=== PATIENT | male | born 1945 | race Caucasian/White ===

== ENCOUNTER 2024-11-21 09:32 | Day surgery (SDC) | payer MEDICARE, OTHER, SELFPAY ==
[2024-10-24 13:07] VITALS: BMI 35.9
--- NOTE | 2024-10-24 14:27 | HPS.HSE ---
Family Physician
-
Family Physician: INTERVIEWE UNKNOWN - PT NOT
Chief Complaint
-
Atrial fibrillation.
History of Present Illness
The patient is an 79 year old male presenting today for atrial fibrillation. He was at a routine office visit with Dr. Iain Donaldson on October 16, 2024 when his EKG demonstrated new onset atrial fibrillation. He was noted to be rate
controlled with Metoprolol Succinate. He was previously on this medication for hypertension and coronary artery calcifications noted on his most recent chest CT. Unfortunately, the duration of his arrhythmia is unknown given the patient reports no
symptoms with this diagnosis. He was already on oral anticoagulation with Eliquis given his history of left lower extremity DVT and bilateral pulmonary embolism in 2018. This was increased, however, from 2.5 mg to 5 mg twice a day after his office
visit. The patient would like to proceed with a cardioversion for further arrhythmia management. He denies any current complaints today such as chest pain, shortness of breath at rest, nausea, vomiting, diarrhea, lightheadedness, dizziness, cough,
sore throat, or fever.
Medical History
Past Medical History
Past Medical History: Reports Other
Additional Past Medical History:
1. New onset atrial fibrillation, pharmacological therapy with Metoprolol Succinate and oral anticoagulation with Eliquis.
2. Hypertension.
3. Hyperlipidemia.
4. Coronary artery calcifications on chest CT.
5. Mild aortic regurgitation.
6. Mild mitral regurgitation.
7. Mild tricuspid regurgitation.
8. Left lower extremity DVT and bilateral pulmonary embolism, 2018, provoked by travel and prolonged immobility; on chronic Eliquis.
9. Restrictive lung disease.
10. Chronic dyspnea on exertion.
11. GERD.
12. Questionable diverticulitis history.
13. Asplenia.
14. Hemorrhoids.
15. Degenerative disc disease with radiculopathy.
16. Osteoarthritis, status post left total knee arthroplasty 2016.
17. Diffuse large B cell lymphoma, 2017, status post chemotherapy and radiation.
18. Pancreatic neuroendocrine tumor, status post partial pancreatectomy 2018.
19. BPH.
20. Obesity, BMI 35.9.
21. Remote history of tobacco abuse.
Past Surgical History: Reports Other
Additional Past Surgical History:
1. Left total knee arthroplasty.
2. Partial pancreatectomy.
3. Splenectomy.
4. Incisional hernia repair.
5. Multiple epidural steroid injections.
6. Endoscopy.
Social History
Tobacco: Former Smoker (He is a former remote pipe smoker. )
Alcohol: Occasional
Living: Other (He lives independently in a 2 story home. )
Family History
Family History: Not pertinent
Allergies / Home Medications
Allergy/Medication List:
Home medications:
1. Alpha lipoic acid 600 mg p.o. daily.
2. Apixaban 5 mg p.o. twice a day.
3. Benadryl itch stopping 28.3 grams topical twice a day as needed.
4. Cetirizine 10 mg p.o. daily as needed.
5. Nexium 24 hour 20 mg p.o. daily.
6. Zetia 10 mg p.o. at bedtime.
7. Flonase 2 sprays intranasal twice a day.
8. Irbesartan 150 mg p.o. at bedtime.
9. Metoprolol Succinate 25 mg p.o. every evening.
10. Nerve recovery 1 capsule p.o. daily.
11. Tadalafil 5 mg p.o. at 3 PM.
Allergies: Seasonal. No known drug allergies.
Review of Systems
-
A 12 point ROS was completed and negative except as noted: Yes
Physical Exam
Vital Signs
Blood pressure 124/92. Heart rate 90. Respirations 18. Pulse ox 97% on room air.
Height 5 feet, 8 inches. Weight 107.1 kg. BMI 35.9.
Physical Exam
General: Well Developed, Well Nourished and No Apparent Distress
HEENT: NormoCephalic, Moist mucous membranes and Atraumatic
Respiratory: Clear
Cardiac: Irregular Rhythm
GI: Soft, Non Tender, Non Distended and Other (Obese. )
Musculoskeletal: Normal Gait & Station
Neuro: AO x 3 and Nonfocal/grossly intact
Laboratory Results
-
EKG 10/24/2024: Atrial fibrillation.
Echocardiogram 10/23/2022: Normal left ventricular size and systolic function. Left ventricular ejection fraction is 60-65% Mild aortic regurgitation. Mild tricuspid regurgitation. Mild mitral regurgitation. Compared to prior echo 07/25/2019, there
is no significant change.
Impression/Plan
-
IMPRESSION/PLAN:
1. New onset atrial fibrillation: The patient is in need of a cardioversion with Dr. Iain Donaldson on 11/21/2024. The benefits and risks of the procedure have been explained to the patient. The patient understands these risks and wishes to
proceed. He will remain on uninterrupted oral anticoagulation prior to his upcoming procedure.
== END 2024-11-21 12:37 | disposition home or self-care (01) ==
LOC: CATH 09:32
PROVIDERS: ATTENDING PHYSICIAN Internal Medicine Cardiovascular Disease; FAMILY PHYSICIAN Family Medicine
DX: I48.91 Unspecified atrial fibrillation (principal); I10 Essential (primary) hypertension; E78.5 Hyperlipidemia, unspecified; I25.10 Atherosclerotic heart disease of native coronary artery without angina pectoris; I08.3 Combined rheumatic disorders of mitral, aortic and tricuspid valves; Z79.01 Long term (current) use of anticoagulants; Z86.711 Personal history of pulmonary embolism; Z86.718 Personal history of other venous thrombosis and embolism; R06.09 Other forms of dyspnea; J44.9 Chronic obstructive pulmonary disease, unspecified; K21.9 Gastro-esophageal reflux disease without esophagitis; Q89.01 Asplenia (congenital); Z87.19 Personal history of other diseases of the digestive system; M54.10 Radiculopathy, site unspecified; M19.90 Unspecified osteoarthritis, unspecified site; Z96.652 Presence of left artificial knee joint; C83.3A Diffuse large B-cell lymphoma, in remission; Z92.3 Personal history of irradiation; Z92.21 Personal history of antineoplastic chemotherapy; N40.0 Benign prostatic hyperplasia without lower urinary tract symptoms; E66.9 Obesity, unspecified; Z68.35 Body mass index [BMI] 35.0-35.9, adult; Z87.891 Personal history of nicotine dependence; Z79.899 Other long term (current) drug therapy
CPT/HCPCS: 92960; 93005

== ENCOUNTER 2025-05-20 21:58 | Inpatient (IN) | payer MEDICARE, OTHER, SELFPAY ==
[2025-05-20 15:50] VITALS: BP 133/85
[2025-05-20 16:28] LABS: Hematocrit 40.8 % (39.0-52.0); Hemoglobin 14.3 g/dL (13.0-18.0); Mean Corp Hgb Conc. 35.0 g/dL (33.0-37.0); Mean Corpuscular Volume 89.1 fL (80.0-94.0); Nucleated Red Blood Cells % 0 % (-); Platelet Count 254 10^3/uL (130-400); Red Cell Dist. Width 14.8 % (11.5-14.5)
[2025-05-20 16:34] LABS: ALT (SGPT) 30 U/L (0-50); AST (SGOT) 28 U/L (17-59); Albumin 4.1 g/dl (3.5-5.0); Alkaline Phosphatase 59 U/L (38-126); Blood Urea Nitrogen 16 mg/dl (9-20); Calcium 9.2 mg/dl (8.4-10.2); Carbon Dioxide 24 mmol/L (22-30); Chloride 100 mmol/L (98-107); Glucose 121 mg/dl (70-99); Potassium 4.3 mmol/L (3.5-5.1); Sodium 131 mmol/L (135-145); Total Protein 7.2 g/dl (6.3-8.2); eGFR > 60.00
[2025-05-20 19:12] VITALS: BP 152/86
[2025-05-20] MEDS: NSS 1000 IV (20:08)
[2025-05-20] MEDS: TYLENOL 650 MG PO (20:08)
--- NOTE | 2025-05-20 20:33 | ED.GENMED ---
History of Present Illness
<Acacia Bernard PA-C - Last Filed: 05/22/25 06:07>
General
Chief Complaint: Abdominal Pain
Source: patient
Exam Limitations: none
Time Seen by Provider: 05/20/25 19:05
Nursing documentation reviewed up to this point in time: agreed with
History of Present Illness
History of Present Illness:
80 Y/O M with h/o AF on eliquis,HTN, HLD, PE
previous hernia repair last year
lymphoma 2017
pancreatic lesion that was apparently not cancerous
here with lopwer abd pain, and dec appetite, nauesa
pt says 3 days ago he started with pain and he thougth he was constipated
used miarlax and did have bm but pain got worse
feels dehydrated
not much to eat/drink today
no h/o liver disease
Past History
<Acacia Bernard PA-C - Last Filed: 05/22/25 06:07>
Past History
ED Past Medical History: Other (Arthritis)
ED Past Surgical History: None and Orthopedic
Social History
Tobacco: Non-smoker
Alcohol: Occasional
Drug: None
Personal:
Living: with family
Employment: Employed
Family History
Family History: CAD (In his father)
Review of Systems
<Acacia Bernard PA-C - Last Filed: 05/22/25 06:07>
Review of Systems
Allergies reviewed?: Yes
All Other Systems: Not applicable
Phy Exam
<Acacia Bernard PA-C - Last Filed: 05/22/25 06:07>
Physical Exam
Physical Exam:
GENERAL: Alert , in no apparent distress nontoxic-appearing
EYE: pupils equal and reactive
NECK: Supple
ENT: o/p clr, mildly dehydrated
CARDIAC: Regular rate and rhythm .
LUNGS: Clear breath sounds bilaterally, no acute respiratory distress, no wheezes/rales/rhonchi
ABDOMEN: Soft, moderate to severe right lower quadrant tenderness no r/g, no cvat, normal bowel sounds irregularly irregular, tachycardic
NEUROLOGICAL: Alert and oriented, no focal neuro deficits
SKIN: Warm and dry, skin intact.
MUSCULOSKELETAL: No edema, well perfused.
PSYCH: Normal and appropriate interaction.
Course
<Acacia Bernard PA-C - Last Filed: 05/22/25 06:07>
Orders/Labs/Results
Orders:
Orders
05/20/25 15:52
EKG [Electrocardiogram (*1)] Urgent
Reason for Study: Tachycardia
05/20/25 15:53
EKG- Treatment ONCE
05/20/25 16:09
Complete Blood Count/With Diff Urgent
Comprehensive Metabolic Panel Urgent
05/20/25 19:26
CT Abd/Pel (IV only)-[facility] only Urgent
Comment:
Reason For Exam: RLQ tenderness, fever, vomitnig
0.9% Sodium Chloride 1000 ml [Nss] 1,000 ml IV BOLUS
Acetaminophen [Tylenol] 650 mg PO NOW STA
05/20/25 20:00
Blood Culture Q30M
ARI Source: Blood/Venous
Specimen Description:
Cefepime HCl [Maxipime] 1,000 mg IV NOW STA
MetroNIDAZOLE 500 MG/100 ML [Flagyl 500 mg] 100 ml IV NOW
05/20/25 20:03
Lactic Acid Urgent
05/20/25 20:47
Sterile Water [Sterile Water For Injection] 10 ml .ROUTE .[facility]
05/20/25 20:59
Blood Culture Q30M
ARI Source: Blood/Venous
Specimen Description:
05/20/25 21:32
Admit/Transfer Patient As Directed
Co-Sign Provider:
Level of Care: Inpatient admission
Assign to:: IMU- Intermediate Care
Physician / Group: Baldo
Diagnosis: Perforated appendicitis
Reason for Hospitalization: Perforated appendicitis
Expected length of stay greater than two midnights?: Yes
ELOS- Estimated Length of Stay in days: 3
I certify the patient meets the requirements for IP care: Yes
PRN Pain Medication Management As Directed
May give lesser potent ordered pain med per pt: Yes
preference::
Protocol:: Medication orders for pain may be administered in a
manner that supports deferring to patient preference
when the pt is:
- Requesting an ordered lesser potent pain medication.
Least to most potent pain medications are defined
as: acetaminophen < NSAID < tramadol < opioids
(morphine, oxycodone, hydromorphone).
- Requesting a lesser dose of the same medication IF
ORDERED.
- Requesting a less intrusive route of administration
if both routes are prescribed by the provider (PO <
IV).
05/20/25 21:33
Code Status As Directed
Resuscitation Status: Full Code
05/20/25 21:37
Metoprolol [Lopressor] 25 mg PO NOW STA
05/21/25 00:43
0.9% Sodium Chloride 1000 ml [Nss] 1,000 ml IV 125 mls/hr
Acetaminophen [Tylenol] 650 mg PO Q4HPRN PRN
Ketorolac [Toradol] 10 mg IV Q6HPRN PRN
Morphine Sulfate 2 mg IV Q4HPRN PRN
Ondansetron Injectable [Zofran] 4 mg IV Q6HPRN PRN
05/21/25 00:43
SURGICAL CONSULT Routine
Consulting Provider: Silverio Lopez
Was physician already notified: Yes
Activity As Directed
Activity Level: With Assistance
Pneumatic Compression Sleeves As Directed
Type: Knee high
Vital Signs As Directed
Frequency: Per unit guidelines
DX Deep Vein Thrombosis Video Routine
05/21/25 04:00
Cefepime HCl [Maxipime] 2,000 mg IV Q8H
05/21/25 04:35
Basic Metabolic Panel IN AM
Complete Blood Count/No Diff IN AM
05/21/25 06:00
MetroNIDAZOLE 500 MG/100 ML [Flagyl 500 mg] 100 ml IV Q8H
05/21/25 18:00
Metoprolol Xl [Toprol Xl] 25 mg PO QPM
Abnormal Lab Results
05/20/25
16:09
WBC 26.0 H 10^3/uL
(4.8-10.8)
RBC 4.58 L 10^6/uL
(4.70-6.10)
MCH 31.2 H pg
(27.0-31.0)
RDW 14.8 H %
(11.5-14.5)
Abs Immat Gran (auto) 0.2 H 10^3/uL
(0-0.05)
Absolute Neuts (auto) 20.1 H 10^3/uL
(1.4-6.5)
Absolute Monos (auto) 2.9 H 10^3/uL
(0.1-0.6)
Immature Gran % 0.8 H %
(0-0.5)
Neutrophils % 77.2 H %
(42.2-75.2)
Lymphocytes % 10.8 L %
(20.5-51.1)
Monocytes % 11.0 H %
(1.7-9.3)
Sodium 131 L mmol/L
(135-145)
Glucose 121 H mg/dl
(70-99)
Total Bilirubin 4.5 H mg/dl
(0.2-1.3)
05/20/25 16:09
05/20/25 16:09
Vital Signs
Initial and Last Documented VS:
Initial Vital Signs
Temp Pulse Resp BP Pulse Ox
37.6 C 111 18 133/85 97
05/20/25 15:50 05/20/25 15:50 05/20/25 15:50 05/20/25 15:50 05/20/25 15:50
Last Documented Vital Signs
Temp Pulse Resp BP Pulse Ox
37.6 C 101 12 139/94 94
05/22/25 04:10 05/22/25 04:00 05/22/25 04:00 05/22/25 04:00 05/22/25 04:00
<Cesar Ellsworth, DO - Last Filed: 05/20/25 20:48>
Orders/Labs/Results
Orders:
Orders
05/20/25 15:52
EKG [Electrocardiogram (*1)] Urgent
Reason for Study: Tachycardia
05/20/25 15:53
EKG- Treatment ONCE
05/20/25 16:09
Complete Blood Count/With Diff Urgent
Comprehensive Metabolic Panel Urgent
05/20/25 19:26
CT Abd/Pel (IV only)-[facility] only Urgent
Comment:
Reason For Exam: RLQ tenderness, fever, vomitnig
0.9% Sodium Chloride 1000 ml [Nss] 1,000 ml IV BOLUS
Acetaminophen [Tylenol] 650 mg PO NOW STA
05/20/25 20:00
Blood Culture Q30M
ARI Source: Blood/Venous
Specimen Description:
Cefepime HCl [Maxipime] 1,000 mg IV NOW STA
MetroNIDAZOLE 500 MG/100 ML [Flagyl 500 mg] 100 ml IV NOW
05/20/25 20:03
Lactic Acid Urgent
05/20/25 20:47
Sterile Water [Sterile Water For Injection] 10 ml .ROUTE .[facility]
05/20/25 20:59
Blood Culture Q30M
ARI Source: Blood/Venous
Specimen Description:
05/20/25 21:32
Admit/Transfer Patient As Directed
Co-Sign Provider:
Level of Care: Inpatient admission
Assign to:: IMU- Intermediate Care
Physician / Group: Baldo
Diagnosis: Perforated appendicitis
Reason for Hospitalization: Perforated appendicitis
Expected length of stay greater than two midnights?: Yes
ELOS- Estimated Length of Stay in days: 3
I certify the patient meets the requirements for IP care: Yes
PRN Pain Medication Management As Directed
May give lesser potent ordered pain med per pt: Yes
preference::
Protocol:: Medication orders for pain may be administered in a
manner that supports deferring to patient preference
when the pt is:
- Requesting an ordered lesser potent pain medication.
Least to most potent pain medications are defined
as: acetaminophen < NSAID < tramadol < opioids
(morphine, oxycodone, hydromorphone).
- Requesting a lesser dose of the same medication IF
ORDERED.
- Requesting a less intrusive route of administration
if both routes are prescribed by the provider (PO <
IV).
05/20/25 21:33
Code Status As Directed
Resuscitation Status: Full Code
05/20/25 21:37
Metoprolol [Lopressor] 25 mg PO NOW STA
05/21/25 00:43
0.9% Sodium Chloride 1000 ml [Nss] 1,000 ml IV 125 mls/hr
Acetaminophen [Tylenol] 650 mg PO Q4HPRN PRN
Ketorolac [Toradol] 10 mg IV Q6HPRN PRN
Morphine Sulfate 2 mg IV Q4HPRN PRN
Ondansetron Injectable [Zofran] 4 mg IV Q6HPRN PRN
05/21/25 00:43
SURGICAL CONSULT Routine
Consulting Provider: Silverio Lopez
Was physician already notified: Yes
Activity As Directed
Activity Level: With Assistance
Pneumatic Compression Sleeves As Directed
Type: Knee high
Vital Signs As Directed
Frequency: Per unit guidelines
DX Deep Vein Thrombosis Video Routine
05/21/25 04:00
Cefepime HCl [Maxipime] 2,000 mg IV Q8H
05/21/25 04:35
Basic Metabolic Panel IN AM
Complete Blood Count/No Diff IN AM
05/21/25 06:00
MetroNIDAZOLE 500 MG/100 ML [Flagyl 500 mg] 100 ml IV Q8H
05/21/25 18:00
Metoprolol Xl [Toprol Xl] 25 mg PO QPM
Abnormal Lab Results
05/20/25
16:09
WBC 26.0 H 10^3/uL
(4.8-10.8)
RBC 4.58 L 10^6/uL
(4.70-6.10)
MCH 31.2 H pg
(27.0-31.0)
RDW 14.8 H %
(11.5-14.5)
Abs Immat Gran (auto) 0.2 H 10^3/uL
(0-0.05)
Absolute Neuts (auto) 20.1 H 10^3/uL
(1.4-6.5)
Absolute Monos (auto) 2.9 H 10^3/uL
(0.1-0.6)
Immature Gran % 0.8 H %
(0-0.5)
Neutrophils % 77.2 H %
(42.2-75.2)
Lymphocytes % 10.8 L %
(20.5-51.1)
Monocytes % 11.0 H %
(1.7-9.3)
Sodium 131 L mmol/L
(135-145)
Glucose 121 H mg/dl
(70-99)
Total Bilirubin 4.5 H mg/dl
(0.2-1.3)
05/20/25 16:09
05/20/25 16:09
Vital Signs
Initial and Last Documented VS:
Initial Vital Signs
Temp Pulse Resp BP Pulse Ox
37.6 C 111 18 133/85 97
05/20/25 15:50 05/20/25 15:50 05/20/25 15:50 05/20/25 15:50 05/20/25 15:50
Last Documented Vital Signs
Temp Pulse Resp BP Pulse Ox
37.6 C 101 12 139/94 94
05/22/25 04:10 05/22/25 04:00 05/22/25 04:00 05/22/25 04:00 05/22/25 04:00
<Acacia Bernard PA-C - Last Filed: 05/22/25 06:07>
MDM/Problems Addressed
Differential Diagnosis Includes:
diverticulitis, appendicitis, cholecystisi, ascending cholangitis
MDM/Problems Addressed:
RLQ pain x 3 days, febrile; normotensive, tachycardic AF with RVR improving with fluids/tylenol
wbc 26
perforated appendicitis with severe inflammation; probably large abscess 13 cm vs. seroma or hematoma (he did have previous hernia repair)
took eliquis this AM
admit, iv abx, cultures,
lactic normal
stable bp
surgery aware
<Acacia Bernard PA-C - Last Filed: 05/22/25 06:07>
*Pulse Oximetry
SaO2: 96
<Cesar Ellsworth DO - Last Filed: 05/20/25 20:48>
*Pulse Oximetry
Patient hypoxic: no
*Critical Care Note
Total Time (30-74mins, 75-104mins- exclusive of procedures): 30
ED Attending Note
<Acacia Bernard PA-C - Last Filed: 05/22/25 06:07>
-
Portions of this chart may have been created with voice recognition software.� Occasional wrong word or��sound alike� substitutions may have occurred due to the inherent limitations of voice recognition software.
<Cesar Ellsworth DO - Last Filed: 05/20/25 20:48>
ED Attending Note
Patient seen and examined by attending physician: Yes
I performed the substantive portion of visit, reviewed & personally made and approve the management plan that is documented in note by myself or ISAI.: Yes
ED Attending Note:
Seen with PA examined independently 80-year-old male on Eliquis for A-fib status post pancreas removal of the tail years ago at [facility] for precancerous issue, presents with fever abdominal pain history of takes labs noted CT scan noted formal report
pending will have him hold his Eliquis for now until we know for sure what pathology is present
Discharge Plan
Departure
Patient Disposition: Admit
Date of Disposition: 05/20/25
Time of Disposition: 20:59
Admit to: Telemetry
Presentation/result/management discussed w/ accepting MD/DO: Hospitalist
Condition: Fair
Covid-19: Not Applicable
Discharge Problem:
Acute perforated appendicitis, Sepsis
Interventions
Interventions:
*Risk Screen - Suicide Last Done: 05/20/25 15:50
*General Assessment Last Done: 05/20/25 15:50
*Neglect/Abuse Screening Last Done: 05/20/25 15:50
*ED- Fall Risk Assessment Last Done: 05/20/25 19:53
*ED COVID-19 Vaccine History Last Done: 05/20/25 15:50
*Nursing Disposition Last Done: 05/21/25 00:25
JS-Zebtzp-Obiasvzfnh Assessment Last Done: 05/20/25 19:53
Discharge Date and Time
Discharge Date/Time: 05/21/25 00:25
[2025-05-20 20:51] VITALS: BP 112/63
[2025-05-20 21:00] VITALS: BP 108/64
[2025-05-20] MEDS: MAXIPIME 1000 MG IV (21:02)
[2025-05-20] MEDS: FLAGYL 500 MG 100 IV (21:11)
--- NOTE | 2025-05-20 21:27 | HPS.HSE ---
Family Physician
-
Family Physician: NOT KNOW UNKNOWN - PT DOES
Chief Complaint
-
Abdominal pain
History of Present Illness
This is a 80-year-old with past medical history of atrial fibrillation, hypertension, hyperlipidemia, who is chronically anticoagulated presents to the emergency department with abdominal pain x 2 days.
Patient reports initially pain started as constipation and then soreness in the bilateral lower quadrants that is worse with movement. Today started to have a low-grade temps at home felt chills and worsening pain which brought him to the emergency
department.
In the emergency department he was febrile to 101.7, he was tachycardic to 106 in atrial fibrillation blood pressure was initially 150/80 now down to 100 systolic.
He has a white count of 26, hemoglobin and platelets were stable. Electrolytes BUN and creatinine were stable. Total bilirubin was 4.5.
A CT of the abdomen pelvis showing acute perforated appendicitis, free fluid, likely abscess, severe diverticulosis without diverticulitis. No biliary abnormalities noted.
Medical History
Past Medical History
Past Medical History: Reports Other
Additional Past Medical History:
1. New onset atrial fibrillation, pharmacological therapy with Metoprolol Succinate and oral anticoagulation with Eliquis.
2. Hypertension.
3. Hyperlipidemia.
4. Coronary artery calcifications on chest CT.
5. Mild aortic regurgitation.
6. Mild mitral regurgitation.
7. Mild tricuspid regurgitation.
8. Left lower extremity DVT and bilateral pulmonary embolism, 2018, provoked by travel and prolonged immobility; on chronic Eliquis.
9. Restrictive lung disease.
10. Chronic dyspnea on exertion.
11. GERD.
12. Questionable diverticulitis history.
13. Asplenia.
14. Hemorrhoids.
15. Degenerative disc disease with radiculopathy.
16. Osteoarthritis, status post left total knee arthroplasty 2016.
17. Diffuse large B cell lymphoma, 2017, status post chemotherapy and radiation.
18. Pancreatic neuroendocrine tumor, status post partial pancreatectomy 2018.
19. BPH.
20. Obesity, BMI 35.9.
21. Remote history of tobacco abuse.
Past Surgical History: Reports Other
Additional Past Surgical History:
1. Left total knee arthroplasty.
2. Partial pancreatectomy.
3. Splenectomy.
4. Incisional hernia repair.
5. Multiple epidural steroid injections.
6. Endoscopy.
Social History
Tobacco: Former Smoker (He is a former remote pipe smoker. )
Alcohol: Occasional
Living: Other (He lives independently in a 2 story home. )
Family History
Family History: Not pertinent
Allergies / Home Medications
Allergies reflects when Allergies were last updated in [facility].
Home Medications with original date entered in [facility]
Allergy/Medication List:
Home medications:
1. Alpha lipoic acid 600 mg p.o. daily.
2. Apixaban 5 mg p.o. twice a day.
3. Benadryl itch stopping 28.3 grams topical twice a day as needed.
4. Cetirizine 10 mg p.o. daily as needed.
5. Nexium 24 hour 20 mg p.o. daily.
6. Zetia 10 mg p.o. at bedtime.
7. Flonase 2 sprays intranasal twice a day.
8. Irbesartan 150 mg p.o. at bedtime.
9. Metoprolol Succinate 25 mg p.o. every evening.
10. Nerve recovery 1 capsule p.o. daily.
11. Tadalafil 5 mg p.o. at 3 PM.
Allergies: Seasonal. No known drug allergies.
Review of Systems
-
Constitutional: Reports No Symptoms
EENT: Reports No Symptoms
Respiratory: Reports No Symptoms
Cardiac: Reports No Symptoms
Abdomen/GI: Reports Abdominal Pain
: Reports No Symptoms
Musculoskeletal: Reports No Symptoms
Skin: Reports No Symptoms
Neurological: Reports No Symptoms
Endocrine: Reports No Symptoms
Hematologic/Lymphatic: Reports No Symptoms
Psych: Reports No Symptoms
Physical Exam
Vital Signs
Vital Signs
Temp Pulse Resp BP Pulse Ox
101.7 F H 106 33 152/86 96
05/20/25 20:00 05/20/25 20:00 05/20/25 20:00 05/20/25 19:12 05/20/25 20:35
Physical Exam
General: Well Developed, Well Nourished and No Apparent Distress
HEENT: NormoCephalic, Moist mucous membranes and Atraumatic
Respiratory: Clear
Cardiac: S1/S2 and Regular Rhythm; No Murmur or Rub
GI: Soft, Non Distended, Normal Bowel Sounds and Tender; No Organomegaly
Rectal: Deferred by Provider
Musculoskeletal: No Clubbing, No Cyanosis and No Edema
Skin: No Rash
Neuro: Nonfocal/grossly intact
Laboratory Results
-
05/20/25 16:09
05/20/25 16:09
Laboratory Results
Lactic Acid 1.6 mmol/L (0.7-2.0) 05/20/25 20:03
Total Bilirubin 4.5 mg/dl (0.2-1.3) H 05/20/25 16:09
AST 28 U/L (17-59) 05/20/25 16:09
ALT 30 U/L (0-50) 05/20/25 16:09
Alkaline Phosphatase 59 U/L (38-126) 05/20/25 16:09
Data Reviewed
-
CT Scan: Report Reviewed by me
Medical Tests (Nuc Med, Echo, EKG etc): Image Personally Visualized and interpreted
Lab Data: Labs Reviewed by me
Old Records: Reviewed
Impression/Plan
-
IMPRESSION:
80-year-old with multiple comorbidities including atrial fibrillation on anticoagulation, BPH, GERD, status post prior distal pancreatectomy with splenectomy who presents to the emergency department with abdominal pain and was found to have
perforated appendicitis with abscess formation, last Eliquis dose was in AM.
PLAN:
Perforated appendicitis with sepsis
- Admit to IMU
-Blood culture sent
-Continue IV cefepime plus Flagyl
-N.p.o.
-IV fluids
-Pain control and antiemetic
-Will hold apixaban
-Hold irbesartan
-Hold parameters on metoprolol
-Surgery consulted and aware, plan for OR possibly in the a.m.
DVT prophylaxis�SCDs for now
CODE STATUS�full code
[2025-05-20] MEDS: LOPRESSOR 25 MG PO (21:50)
[2025-05-20 22:00] VITALS: BP 112/78
[2025-05-20 23:00] VITALS: BP 103/65
[2025-05-21] VITALS (12 sets, daily range): BP systolic 103–149; BP diastolic 66–98; BMI 32.1; BMI 32.2
[2025-05-21] MEDS: MORPHINE SULFATE 2 MG IV (00:59)
[2025-05-21] MEDS: NSS 1000 IV ×3 (00:59→22:09)
--- NOTE | 2025-05-21 01:43 | PTCARENOTE ---
Assumed care of Pt from ED RN> Pt AAOX4 able to make needs known. Pt OOBx1 BRP, having loose stool. Pt seen to have hematuria in brief, per Pt this is new. [employer] made aware. Pt continues in Afib with pvc's. Call fiore with in reach.
[2025-05-21] MEDS: MAXIPIME 2000 MG IV ×3 (04:24→22:09)
[2025-05-21] MEDS: STERILE WATER FOR INJECTION 10 ML IV ×3 (04:24→22:09)
[2025-05-21] MEDS: TYLENOL 650 MG PO (04:39)
[2025-05-21] MEDS: TORADOL 10 MG IV ×2 (05:02→18:25)
[2025-05-21] MEDS: FLAGYL 500 MG 100 IV ×3 (05:02→22:09)
[2025-05-21 05:07] LABS: Hematocrit 36.7 % (39.0-52.0); Hemoglobin 12.9 g/dL (13.0-18.0); Mean Corp Hgb Conc. 35.1 g/dL (33.0-37.0); Mean Corpuscular Volume 88.0 fL (80.0-94.0); Platelet Count 262 10^3/uL (130-400); Red Cell Dist. Width 14.6 % (11.5-14.5)
[2025-05-21 05:19] LABS: Blood Urea Nitrogen 16 mg/dl (9-20); Calcium 8.7 mg/dl (8.4-10.2); Carbon Dioxide 20 mmol/L (22-30); Chloride 104 mmol/L (98-107); Estimated Creatinine Clearance 92 ml/min; Glucose 110 mg/dl (70-99); Potassium 3.9 mmol/L (3.5-5.1); Sodium 131 mmol/L (135-145); eGFR > 60.00
--- NOTE | 2025-05-21 05:51 | PTCARENOTE ---
Pt having pain in abd, medication given see mar. Pt inct of urine, tea colored with blood clots. urine sent to lab. Pt NPO.
[2025-05-21 06:56] LABS: Urine Character Slightly Cloudy (Clear)
[2025-05-21 07:20] LABS: Urine Squamous Cell 0-2 /LPF (Few)
[2025-05-21 07:21] LABS: Urine Red Blood Cell 40-50 /HPF (0-2); Urine White Cell 0-2 /HPF (0-5)
--- NOTE | 2025-05-21 07:34 | PTCARENOTE ---
Pt resting in bed. no complaints of pain. SCDs on. call fiore in reach. Nightshift RN completed pre-op hygiene.
--- NOTE | 2025-05-21 09:29 | PTCARENOTE ---
Rec'd pt this AM. Remains NPO per surgery. Pt with loose stools, incontinent episodes. HR elevated when OOB. Denies pain.
--- NOTE | 2025-05-21 09:29 | CON.GS ---
Addendum entered and electronically signed by Chong Mueller MD 05/21/25 14:54:
I saw and examined the patient independently.
The resident's documentation was reviewed and I agree with the note, assessment and plan except where noted below.
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
fairly significant seroma on CT imaging which the patient was unaware of) who presents with a 2-day history of abdominal pain found to have acute perforated appendicitis with a collection in the right lower quadrant with air-fluid levels.
IR consult for percutaneous drainage of right lower quadrant abscess.
Antibiotics.
Continue holding Eliquis, okay for heparin drip if deemed necessary by primary team.
Okay for diet, can advance as tolerated.
DVT prophylaxis.
General surgery will continue to follow.
I spent 70 minutes in total for the care of this patient today including direct patient care and counseling, reviewing labs, imaging, coordination of care, as well as documentation.
Original Note:
Consultation
-
Date/Time Consultation Requested: 05/20/2025
Date/Time Consultation Performed: 05/21/2025
Requesting Provider: Jo Bland
Performing Provider: Chong Wells
Reason for Consultation: Perforated Appendicitis with Abscess formation
Medical History
-
Chief Complaint: 80 y/o M w/ PMH of A. Fib, HTN, Hyperlipidemia, presents w/ abdominal pain
History of Present Illness:
80 y/o M with PMH of A. Fib, HTN, and Hyperlipidemia, who is chronically anticoagulated, presented to the ED 2 days ago due to a couple days of fever, chill, and abdominal pain. Patient initially reports pain that started as constipation and then
soreness in bilateral lower quadrants thats worsens with movement.
Past Medical History
Past Medical History: Arrhythmias (Atrial fibrillation), CAD, Cancer (B- cell lymphoma s/p chemo and radiation 2017), Diverticulitis, HTN, Hypercholesterolemia, Valvular Disease (Mild aortic, mitral and triscuspid regurgitation) and Other (Left
lower extremity DVT, Bilateral PE 2018 d/t immobilization and travel, Asplenia, Hemorrhoids, Osteoarthritis. )
Past Surgical History: Hernia Repair, Orthopedic (left total knee arthroplasty) and Other (partial pancreatectomy 2018, splenectomy)
Social History
Tobacco: Former Smoker (Quit years ago)
Alcohol: Occasional
Drug: None
Personal: Single
Living: Alone
Employment: Retired
Family History
Family History: Reviewed & Not Pertinent
Allergies / Home Medications
Allergy/AdvReac Type Severity Reaction Status Date / Time
Penicillins Allergy Unknown Rash Verified 05/20/25 15:51
clindamycin AdvReac Thrush Verified 05/20/25 15:51
�Medication �Instructions �Recorded �Confirmed �Type
cetirizine 10 mg tablet 10 mg PO DAILY PRN allergies 09/04/12 11/21/24 History
diphenhydramine-zinc acetate 1 28.3 gm TP BID PRN itching 07/27/19 11/21/24 History
%-0.1 % topical cream (Benadryl
Itch Stopping)
esomeprazole magnesium 20 mg 20 mg PO DAILY GERD 07/27/19 11/21/24 History
capsule,delayed release (Nexium
24HR)
irbesartan 150 mg tablet 150 mg PO HS Blood Pressure 07/27/19 11/21/24 History
alpha lipoic acid 600 mg tablet 600 mg PO DAILY Supplement 10/20/24 11/21/24 History
apixaban 5 mg tablet (Eliquis) 5 mg PO BID Blood Clot 10/20/24 11/21/24 History
Prevention/Tx
ezetimibe 10 mg tablet (Zetia) 10 mg PO HS High Cholesterol 10/20/24 11/21/24 History
fluticasone propionate 50 2 spray intranasal BID Congestion 10/20/24 11/21/24 History
mcg/actuation nasal
spray,suspension (Flonase Allergy
Relief)
metoprolol succinate 25 mg 25 mg PO QPM Blood Pressure 10/20/24 11/21/24 History
tablet,extended release 24 hr
tadalafil 5 mg tablet (Cialis) 5 mg PO DAILY@1500 BPH/ED/PHTN 10/20/24 11/21/24 History
Nerve Recovery 1 cap PO DAILY Supplement 10/24/24 11/21/24 History
Review of Systems
-
Unable to obtain full review of systems at this time due to: Acuity (Patient is in pain )
History Source: Patient
All other systems: Negative unless noted
Constitutional: Fever and Chills
EENT: No Symptoms
Respiratory: Trouble Breathing
Cardiac: No Symptoms
Abdomen/GI: Abdominal Pain, Nausea, Vomiting, Diarrhea and Pain
: Incontinence
Musculoskeletal: No Symptoms
Skin: No Symptoms
Neurological: Numbness (Peripheral neuropathy)
Endocrine: No Symptoms
Hematologic/Lymphatic: No Symptoms
A 10 point review of systems was completed, and was negative except as per HPI.
Physical Exam
Vital Signs
Temp Pulse Resp BP Pulse Ox
98.2 F 105 28 103/73 98
05/21/25 07:10 05/21/25 08:00 05/21/25 08:00 05/21/25 08:00 05/21/25 08:33
05/20/25 05/21/25 05/22/25
06:59 06:59 06:59
Actual Weight 107.6 kg
Body Mass Index (BMI) 32.2
Lab Results
05/21/25 04:35
05/21/25 04:35
WBC 25.1 10^3/uL (4.8-10.8) H 05/21/25 04:35
Hgb 12.9 g/dL (13.0-18.0) L 05/21/25 04:35
Hct 36.7 % (39.0-52.0) L 05/21/25 04:35
Plt Count 262 10^3/uL (130-400) 05/21/25 04:35
Abs Immat Gran (auto) 0.2 10^3/uL (0-0.05) H 05/20/25 16:09
Neutrophils % 77.2 % (42.2-75.2) H 05/20/25 16:09
AFVSS
Physical Exam
General: Pain (Patient is visibly distressed)
HEENT: Normocephalic, Anicteric and Atraumatic
Respiratory: Wheezes
Cardiac: S1/S2 and Regular Rhythm
Breast: Deferred by me
GI: Soft, Tender, Distended and Obese
Rectal: Deferred by Provider
Genito-urinary: Clear Urine
Musculoskeletal: No Clubbing, No Cyanosis and No Edema
Skin: Warm and Dry
Neuro: AO x 3
Hematologic/Lymphatic: No Lymphadenopathy
Psych: Agitated
Data Reviewed
-
CT Scan: Discussed with Physician and Discussed with Patient
Ultrasound: Discussed with Physician and Discussed with Patient
Labs: Discussed with Physician
Critical Care Time (in minutes): 30
Total Time Spent with Patient (in minutes): 45
Assessment / Plan
-
Continue to hold on Eliquis
Continue IV fluid/NPO
Continue antibiotics
Consult IR
Recommend percutaneous abscess drainage
--- NOTE | 2025-05-21 11:21 | W.PN.HOSP.TC ---
Today's Communication/Plan
-
IV antibiotics
Interventional radiology consultation for percutaneous abscess drain.
Hold Eliquis
Remains n.p.o. except meds
Assessment / Plan
Assessment / Plan
Impression
Acute perforated appendicitis
Other conditions
Persistent atrial fibrillation.
History of left lower extremity DVT and bilateral PE 2018, provoked by travel and prolonged immobility.
Anticoagulation with Eliquis.
Essential hypertension.
Dyslipidemia.
Valvular disease including mild AR, mild MR, mild TR.
Reactive airway disease.
GERD.
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
Pancreatic neuroendocrine tumor, status post partial pancreatectomy 2018
Asplenia
BPH
Obesity BMI 32
Remote history of tobacco abuse.
Plan:
Acute perforated appendicitis per
Presents with persistent right lower quadrant pain and fever pain and fever.
Hemodynamically stable with no evidence of sepsis
Exam with right lower quadrant tenderness but
WBC 26.
CT scan
1. ACUTE PERFORATED APPENDICITIS surrounded by severe inflammation.
2. Severe reactive wall thickening and submucosal edema in the terminal ileum.
3. Small volume ascites.
4. Moderate reactive lymphadenopathy in the right pelvis.
5. Large 13.1 cm midline anterior abdominal wall fluid collection. Diagnostic possibilities are (1) a seroma, (2) a liquefied hematoma, or (3) an abscess.
6. Severe diverticulosis in the descending and sigmoid colon.
7. Previous distal pancreatectomy and splenectomy.
8. Moderate diffuse hepatic steatosis.
9. Small hiatal hernia.
10. Moderate number of bilateral renal cysts.
11. Severely enlarged prostate gland.
12. Severe multilevel lumbar discogenic degenerative disease.
Seen by surgery.
Plan is for percutaneous abscess drain
Broad-spectrum antibiotics cefepime/Flagyl pending cultures
N.p.o. pending procedure
Hold anticoagulation/Eliquis
IV fluids monitor electrolytes
Cardiovascular:
Persistent atrial fibrillation
Essential hypertension
Continue beta-moraima.
Hold Irbesartan
Hold anticoagulation pending intervention
Mechanical DVT prophylaxis while off Eliquis
Full code
Anticipated Discharge: > 48 hours
Subjective/Interval History
-
Date of Service: May 21, 2025
Objective Data
-
Labs:
Laboratory Results
05/21/25
04:35
WBC 25.1 H
Hgb 12.9 L
Hct 36.7 L
Plt Count 262
Sodium 131 L
Potassium 3.9
Chloride 104
Carbon Dioxide 20 L
BUN 16
Creatinine 0.8
Glucose 110 H
Calcium 8.7
Vital Signs:
Vital Signs
Temp Pulse Resp BP Pulse Ox
98.2 F 105 28 103/73 98
05/21/25 07:10 05/21/25 08:00 05/21/25 08:00 05/21/25 08:00 05/21/25 08:33
I&O
05/20/25 05/21/25 05/22/25
06:59 06:59 06:59
Intake Total 755 / 755
Output Total 300 / 300
Balance 455 / 455
Physical Exam
-
General: Well Developed and No Apparent Distress
HEENT: Normocephalic, Atraumatic and Moist Mucous Membranes
Respiratory: Clear to Auscultation
Cardiac: Regular Rhythm and S1/S2; Negative Murmur, Rub or Gallop
GI: Soft, Nondistended, Normal Bowel Sounds and Other (Right lower quadrant tender); Negative Organomegaly
Rectal: Deferred by Provider
Musculoskeletal: No Clubbing, No Cyanosis and No Edema
Skin: Negative Rash
Neuro: Nonfocal/Grossly Intact
--- NOTE | 2025-05-21 16:58 | CM ---
Patient with Dx Acute perforated appendicitis. Plan percutaneous abscess drain. Room air. Receiving IVF, IV Abx. Clear liquids. Per nurse A/O, ambulatory in room.
Spoke with patient's daughter Michaela;
the patient resides alone at [facility] in a 2 story house with 2 [address], and first floor bedroom/bath.
He was independent in ADLs and ambulation.
The patient was very active; walks, swims, cooks, drives, takes himself to the beach, workout at [email or web address].
He has a oxygen therapy teacher to assist with chores at home.
No DME, prior VN or SNF.
PCP - Elver Maxwell
Pharmacy - [facility], [place]
CM continuing to follow for d/c needs.
Plan home.
[2025-05-21] MEDS: TOPROL XL 25 MG PO (17:17)
--- NOTE | 2025-05-21 17:20 | PTCARENOTE ---
Pt continues with frequent loose stools. Dr. Key and GI surgery MILK DRYING MACHINE OPERATOR, Maria G Jones aware. Pt for abcess drain in IR tomorrow. NPO after midnight. clear liquid diet today.
[2025-05-21] MEDS: ZOFRAN 4 MG IV (21:41)
[2025-05-22] VITALS (21 sets, daily range): BP systolic 83–152; BP diastolic 70–101; BMI 31.8
--- NOTE | 2025-05-22 01:09 | PTCARENOTE ---
Assumed care of Pt from day RN. Pt having pain at times, see mar for caregivers non medical. Pt became NPO at midnight for abd drain placement on 05/22. Call fiore within reach. Bed alarm on. Assessment care and vitals as documented.
[2025-05-22] MEDS: MAXIPIME 2000 MG IV (03:55)
[2025-05-22] MEDS: STERILE WATER FOR INJECTION 10 ML IV (03:56)
[2025-05-22 04:29] LABS: Hematocrit 38.1 % (39.0-52.0); Hemoglobin 13.1 g/dL (13.0-18.0); Mean Corp Hgb Conc. 34.4 g/dL (33.0-37.0); Mean Corpuscular Volume 89.2 fL (80.0-94.0); Platelet Count 287 10^3/uL (130-400); Red Cell Dist. Width 14.9 % (11.5-14.5)
[2025-05-22 04:58] LABS: Blood Urea Nitrogen 19 mg/dl (9-20); Calcium 9.1 mg/dl (8.4-10.2); Carbon Dioxide 14 mmol/L (22-30); Chloride 110 mmol/L (98-107); Estimated Creatinine Clearance 91 ml/min; Glucose 114 mg/dl (70-99); Potassium 4.0 mmol/L (3.5-5.1); Sodium 136 mmol/L (135-145); eGFR > 60.00
--- NOTE | 2025-05-22 05:33 | W.PN.UPDATE ---
Update Note
Progress Note Update
Critical value AM labs: CO2 14, ordered Bicarb Gtt 150 meq @ 125 mls/hr. Discontinued NSS fluids. Repeat labs ordered for 6 hours.
[2025-05-22] MEDS: NSS IV (05:38)
[2025-05-22] MEDS: FLAGYL 500 MG 100 IV (05:39)
--- NOTE | 2025-05-22 05:46 | PTCARENOTE ---
Morning labs CO2 14 critical, LINOLEUM FLOOR LAYER made aware. Ordered placed for Bicarb Gtt 150 meq @ 125 mls/hr. Discontinued NSS fluids
[2025-05-22] MEDS: MORPHINE SULFATE 2 MG IV (06:03)
--- NOTE | 2025-05-22 08:43 | W.PN.GS2 ---
Today's Communication / Plan
-
Monitor for signs of sepsis after drain is placed
Continue IV antibiotics
Continue to hold Eliquis
Continue pain medication prn
Assessment / Plan
-
Continue to wait for IR consult for percutaneous abscess drain to be placed in right lower quadrant.
Continue IV antibiotics
Continue to hold Eliquis
DVT Prophylaxis
Advance diet as tolerated
General surgery will continue to follow
Time Spent
Total Time Spent with Patient (in minutes): 15
Subjective Data
-
Date of Service: May 22, 2025
80 y/o M w/ PMH Afib (was on Eliquis with last dose on morning of 05/20/2025), S/P distal pancreatectomy splenectomy for a pancreatic neoplasm as well as ventral hernia repair with mesh (Noted that a large seroma was incidentally found on CT imaging
and was not known by patient), who presented with 2 days of abdominal pain found to be acute perforated appendicitis with air fluid collection in the right lower quadrant. Patient denies any fever, vomiting, but admits to mild nausea. He states that
he has not passed any flatus that he knows of and that he continues to have frequent watery diarrhea. Patient denies pain and states that his pain medication is working well. He states that he's been having what feels like constant indigestion.
Patient is very hopeful to receive his percutaneous drain today.
Objective Data
-
Intake and Output
05/21/25 05/22/25 05/23/25
06:59 06:59 06:59
Intake Total 755 / 755 1838
Output Total 300 / 300
Balance 455 / 455 1838
Intake:
Oral fluids 30 / 30 240 / 240
IV fluids (Total) 625 / 625 1375 / 1375
IV piggybacks 100 / 100 224 / 224
Output:
Urine, Voided 300 / 300
Other:
Number of approximated SMALL 1
amounts of urine
Number of approximated MODERATE 1
amounts of urine
How many times incontinent 1
SMALL amount urine
How many times incontinent 1
MODERATE amount urine
How many times incontinent 1
SATURATED amount urine
Number of unmeasured liquid
stools
Rectum 1
Vital Signs
Temp Pulse Resp BP Pulse Ox
97.9 F 105 13 134/99 96
05/22/25 07:05 05/22/25 06:15 05/22/25 06:15 05/22/25 06:15 05/22/25 06:15
Lab Results
05/22/25 03:56
Calcium 9.1 mg/dl (8.4-10.2) 05/22/25 03:56
Total Bilirubin 4.5 mg/dl (0.2-1.3) H 05/20/25 16:09
AST 28 U/L (17-59) 05/20/25 16:09
ALT 30 U/L (0-50) 05/20/25 16:09
Alkaline Phosphatase 59 U/L (38-126) 05/20/25 16:09
Total Protein 7.2 g/dl (6.3-8.2) 05/20/25 16:09
Albumin 4.1 g/dl (3.5-5.0) 05/20/25 16:09
AFVSS
Labs: WBC is trending high. Could be indicative of ongoing inflammatory process
Physical Exam
-
General: Patient seems anxious and mildy distressed
AAAOx3
Chest: Mild wheezing noted
Abdomen: Despite being on pain meds, patient experiences pain and tenderness when abdominal area is palpated around the right lower quadrant. There is moderate distension around this area as well.
Patient has a galindo catheter: No
Patient has a central line: No
--- NOTE | 2025-05-22 08:45 | PTCARENOTE ---
Patient received from police shift commander. Patient resting comfortably in bed. AAO, VSS. No events noted overnight. Complaints of abdominal and lower back pain at this times, see MAR. Also with some complaints of reflux, will get TUMS ordered.
Currently on Room Air. Continuing glucose management. No fluids via IV. Currently NPO. Patient in for drain in IR today and an ECHO. Call fiore in reach.
[2025-05-22] MEDS: SODIUM BICARBONATE 1150 MEQ IV ×2 (08:49→19:47)
[2025-05-22] MEDS: TORADOL 10 MG IV ×2 (08:52→19:49)
--- NOTE | 2025-05-22 09:13 | PTCARENOTE ---
Patient received from car sales representative. Patient resting comfortably in bed. AAO, VSS. No events noted overnight. Complaints of abdominal and lower back pain at this times, see MAR. Also with some complaints of reflux, will get TUMS ordered.
Currently on Room Air. Sterile water with bicarb ordered. Continuing ABX. Patient in for drain in IR today and an ECHO. Call fiore in reach.
[2025-05-22] MEDS: TUMS CHEWABLE TABLET 200 MG PO (09:41)
--- NOTE | 2025-05-22 09:51 | CON.ID ---
Consultation
-
Date/Time Consultation Requested: May 22, 2025 0950
Date/Time Consultation Performed: May 22, 202550
Requesting Provider: Dr. Ace Key
Performing Provider: Dr. Christine Barrera
Reason for Consultation: Perforated appendicitis
Chief Complaint / Past History
Chief Complaint
Abdominal pain
History of Present Illness
80-year-old male with history of atrial fibrillation, DVT/PE, splenectomy, who presented to the hospital on May 21 due to 2-day history of worsening lower abdominal pain. No diarrhea. Initially he was constipated. No nausea or vomiting. He
developed subjective fevers and chills and therefore came to the ER. In the ER temperature one 1.7, white count 26. CAT scan shows perforated appendicitis, with right lower quadrant air-fluid collection. Also incidental finding of large left
abdominal wall fluid collection 13.1 cm suspected seroma from previous incisional hernia repair per surgery. He is currently on cefepime and metronidazole. Abdominal pain improved today. He is having loose stools now. Remote history of
penicillin reaction with rash when he was a child.
Past History
Additional Past Medical History:
Hypertension
Dyslipidemia
Atrial fibrillation
LLE DVT/PE
Restrictive lung disease
BPH
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
Left total knee replacement
Incisional hernia repair
Allergy History:
Penicillins Allergy (Unknown, Verified 05/20/25 15:51)
Rash (child)
clindamycin Adverse Reaction (Verified 05/20/25 15:51)
Thrush
Medications Reviewed: Yes
Current Antibiotics:
Cefepime day 3
Metronidazole IV day 3
Social History
Tobacco: Former Smoker
Alcohol: Occasional
Drug: None
Family History
Family History: Not Pertinent
Review of Systems
Review of Systems
General: Fever, Chills and Change in Appetite
HEENT: Negative Sinus Problems, Headache or Pharyngitis
Cardiovascular: Negative Chest Pain or Dyspnea
Respiratory: Negative Dyspnea or Cough
Gasteroenterology: Diarrhea; Negative Nausea or Vomiting
Endocrine: Weakness
Neurological: Negative Dizziness
All systems: All other systems were reviewed and were negative
Vital Signs
Temp Pulse Resp BP Pulse Ox
97.9 F 105 13 134/99 96
05/22/25 07:05 05/22/25 06:15 05/22/25 06:15 05/22/25 06:15 05/22/25 06:15
Selected Entries
05/20/25
20:00
Temp 101.7 F H
Physical Exam
Physical Exam
Constitutional: No Acute Distress
Eyes: No Conjunctival Hemorrhage and Sclera Anicteric
Cardiovascular: Regular Rate and S1/S2
Pulmonary: Clear
Gastrointestinal: Soft, Tender (Right lower quadrant), Non Distended and Normal Bowel Sounds
Genito-Urinary: Negative CVA Tenderness
Extremities: Negative Edema
Neurological: AO x 3
Lab / Diagnostic Study Results
05/22/25 03:56
Abs Immat Gran (auto) 0.2 10^3/uL (0-0.05) H 05/20/25 16:09
Absolute Neuts (auto) 20.1 10^3/uL (1.4-6.5) H 05/20/25 16:09
Absolute Lymphs (auto) 2.8 10^3/uL (1.2-3.4) 05/20/25 16:09
Absolute Monos (auto) 2.9 10^3/uL (0.1-0.6) H 05/20/25 16:09
Absolute Basos (auto) 0.1 10^3/uL (0-0.2) 05/20/25 16:09
Immature Gran % 0.8 % (0-0.5) H 05/20/25 16:09
Neutrophils % 77.2 % (42.2-75.2) H 05/20/25 16:09
Lymphocytes % 10.8 % (20.5-51.1) L 05/20/25 16:09
Monocytes % 11.0 % (1.7-9.3) H 05/20/25 16:09
Eosinophils % 0.0 % (0-6) 05/20/25 16:09
Basophils % 0.2 % (0-2) 05/20/25 16:09
Lactic Acid 1.6 mmol/L (0.7-2.0) 05/20/25 20:03
Ur Squamous Epith Cells 0-2 /LPF (Few) 05/21/25 05:11
Microbiology Results
Micro:
05/20/25 20:00 Blood Culture - Preliminary
Blood/Venous Viridans Streptococcus Group
Gram Stain - Preliminary
05/20/25 20:59 Blood Culture - Preliminary
Blood/Venous No Growth in 24 hours- Final report to follow
05/21/25 05:11 Urine Culture - Pending
Urine
05/20/25 CT a/p: ACUTE PERFORATED APPENDICITIS surrounded by severe inflammation. Severe reactive wall thickening and submucosal edema in the terminal ileum.Small volume ascites.Moderate reactive lymphadenopathy in the right pelvis. Large 13.1 cm
midline anterior abdominal wall fluid collection. Diagnostic possibilities are (1) a seroma, (2) a liquefied hematoma, or (3) an abscess.
Assessment / Plan
# Perforated appendicitis with localized abscess
# Viridans group Streptococcus bacteremia from intra-abdominal source
# Sepsis with fever and leukocytosis
# Reported history of penicillin allergy�rash
# History of splenectomy and partial pancreatectomy
- Follow repeat blood cultures pending
-For IR drainage of right lower quadrant abscess, as per colorectal
Check aerobic and anaerobic culture.
- Most individuals outgrow penicillin allergy. Patient agreed agreeable to penicillin challenge.
DC cefepime and metronidazole.
Start Unasyn 3 g IV every 6 hours and monitor closely.
- Trend white count and temperature.
# Conditions HIV CTS SPECIALIST
Hypertension
Dyslipidemia
Atrial fibrillation
LLE DVT/PE
Restrictive lung disease
BPH
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
Left total knee replacement
Incisional hernia repair
Care Review
Plan reviewed with: Physician (Dr. Key)
--- NOTE | 2025-05-22 09:54 | W.PN.HOSP.TC ---
Today's Communication/Plan
-
Repeat blood cultures.
Echocardiogram
Interventional radiology to drain appendiceal abscess.
ID consultation
Hold Eliquis in anticipation of procedure. Will plan to bridge with Lovenox after.
IV fluids changed to alkalinize given worsening metabolic acidosis. Follow BMP
Assessment / Plan
Assessment / Plan
Impression
Acute perforated appendicitis
Strep viridans bacteremia
Normal anion gap metabolic acidosis
Other conditions
Persistent atrial fibrillation.
History of left lower extremity DVT and bilateral PE 2018, provoked by travel and prolonged immobility.
Anticoagulation with Eliquis.
Essential hypertension.
Dyslipidemia.
Valvular disease including mild AR, mild MR, mild TR.
Reactive airway disease.
GERD.
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
Pancreatic neuroendocrine tumor, status post partial pancreatectomy 2018
Asplenia
BPH
Obesity BMI 32
Remote history of tobacco abuse.
Plan:
Acute perforated appendicitis per
Presents with persistent right lower quadrant pain and fever pain and fever.
Hemodynamically stable with no evidence of sepsis
Exam with right lower quadrant tenderness but
WBC 26.
CT scan
1. ACUTE PERFORATED APPENDICITIS surrounded by severe inflammation.
2. Severe reactive wall thickening and submucosal edema in the terminal ileum.
3. Small volume ascites.
4. Moderate reactive lymphadenopathy in the right pelvis.
5. Large 13.1 cm midline anterior abdominal wall fluid collection. Diagnostic possibilities are (1) a seroma, (2) a liquefied hematoma, or (3) an abscess.
6. Severe diverticulosis in the descending and sigmoid colon.
7. Previous distal pancreatectomy and splenectomy.
8. Moderate diffuse hepatic steatosis.
9. Small hiatal hernia.
10. Moderate number of bilateral renal cysts.
11. Severely enlarged prostate gland.
12. Severe multilevel lumbar discogenic degenerative disease.
Blood culture positive for strep viridans
Seen by surgery.
Plan is for percutaneous abscess drain
Broad-spectrum antibiotics cefepime/Flagyl pending cultures
N.p.o. pending procedure
Hold anticoagulation/Eliquis
IV fluids monitor electrolytes
Repeat blood cultures
Echocardiogram
ID consultation
Normal anion gap metabolic acidosis secondary to diarrheal stool.
Suspect also pancreatic insufficiency with prior history of partial pancreatectomy
IV fluids changed alkalinized
Follow BMP
Cardiovascular:
Persistent atrial fibrillation
Essential hypertension
Continue beta-moraima.
Hold Irbesartan
Hold anticoagulation pending intervention
Mechanical DVT prophylaxis while off Eliquis
Full code
Anticipated Discharge: > 48 hours
Subjective/Interval History
-
Date of Service: May 22, 2025
Objective Data
-
Labs:
Laboratory Results
05/22/25 05/22/25
03:56 11:00
WBC 24.7 H
Hgb 13.1
Hct 38.1 L
Plt Count 287
Sodium 136 Pending
Potassium 4.0 Pending
Chloride 110 H Pending
Carbon Dioxide 14 L* Pending
BUN 19 Pending
Creatinine 0.8 Pending
Glucose 114 H Pending
Calcium 9.1 Pending
Vital Signs:
Vital Signs
Temp Pulse Resp BP Pulse Ox
97.9 F 105 13 134/99 96
05/22/25 07:05 05/22/25 06:15 05/22/25 06:15 05/22/25 06:15 05/22/25 06:15
I&O
05/21/25 05/22/25 05/23/25
06:59 06:59 06:59
Intake Total 755 / 755 1838
Output Total 300 / 300
Balance 455 / 455 1838
Physical Exam
-
General: Well Developed and No Apparent Distress
HEENT: Normocephalic, Atraumatic and Moist Mucous Membranes
Respiratory: Clear to Auscultation
Cardiac: Regular Rhythm and S1/S2; Negative Murmur, Rub or Gallop
GI: Soft, Nondistended, Normal Bowel Sounds and Other (Right lower quadrant tender); Negative Organomegaly
Rectal: Deferred by Provider
Musculoskeletal: No Clubbing, No Cyanosis and No Edema
Skin: Negative Rash
Neuro: Nonfocal/Grossly Intact
[2025-05-22 11:47] LABS: Blood Urea Nitrogen 20 mg/dl (9-20); Calcium 8.8 mg/dl (8.4-10.2); Carbon Dioxide 16 mmol/L (22-30); Chloride 108 mmol/L (98-107); Estimated Creatinine Clearance 91 ml/min; Glucose 117 mg/dl (70-99); Potassium 3.7 mmol/L (3.5-5.1); Sodium 135 mmol/L (135-145); eGFR > 60.00
[2025-05-22] MEDS: UNASYN IV ×3 (12:10→23:29)
[2025-05-22] MEDS: PROTONIX IV 40 MG IV (13:36)
[2025-05-22] MEDS: NSS (PRESERVATIVE FREE) 10 ML IV (13:36)
--- NOTE | 2025-05-22 13:48 | PN.CDI ---
CDI
- -
CDI:
Physician Documentation Request
Admit Date: 05/20/25 21:58
Dear Doctor Shahid,
The diagnosis of Sepsis was documented in H&P, but is not consistently noted in subsequent documentation.
05/20 T max 101.7
Presenting heart rate 111
Presenting respiratory rate 18
Laboratory Tests
05/20/25
16:09
WBC 26.0 H
Please clarify the following:
____ - Sepsis was present on admission
____ - Sepsis was ruled out
____ - Other
Use of terms such as suspected, likely, concern for, or probable (associated with a specific diagnosis that is being evaluated, monitored, or treated as if it exists) are acceptable and can be coded in the inpatient setting, when documented at the
time of discharge.
Thank you,
Yessy Block RN, BSN
CDI Specialist
tiger text
Please use your independent medical judgment in providing your response.
--- NOTE | 2025-05-22 13:51 | PN.CDI ---
CDI
- -
CDI:
Physician Documentation Request
Admit Date: 05/20/25 21:58
Dear Doctor Shahid,
Patient admitted with perforated appendicitis.
Sodium results:
Laboratory Tests
05/20/25 05/21/25 05/22/25
16:09 04:35 03:56
Sodium 131 L 131 L 136
Could you please provide a diagnosis that supports the above lab abnormalities and additional evaluation, monitoring:
Hyponatremia
Abnormal lab value clinically insignificant
Other
Use of terms such as suspected, likely, concern for, or probable (associated with a specific diagnosis that is being evaluated, monitored, or treated as if it exists) are acceptable and can be coded in the inpatient setting, when documented at the
time of discharge.
Thank you,
Yessy Block RN, BSN
CDI Specialist
tiger text
Please use your independent medical judgment in providing your response.
--- NOTE | 2025-05-22 18:37 | W.PN.GS2 ---
Today's Communication / Plan
-
-- OK for trial of clears
-- IR drain flush, will need VNA
-- Abx: Unasyn, f/u cultures
Assessment / Plan
-
Patient is a 80 yo M p/w perforated appendicitis with associated abscess formation
IR drain of abscess placed on 05/22
AVSS
Labs notable for persistently elevated WBC, stable Hb, normal platelets, normal electrolytes and renal function
Clinically stable and improved post drain procedure. Okay for trial of clear liquids, discussed risks of ileus formation. Follow-up drain cultures and tailor antibiotics as needed. Will likely be discharge with IR drain in place and outpatient
follow-up.
-- OK for trial of clears
-- IR drain flush, will need VNA
-- Abx: Unasyn, f/u cultures
Subjective Data
-
Date of Service: May 22, 2025
No major complaints. Feels improved following drain placement. No fevers or chills. Denies any nausea or vomiting. Passing blood preschools, no flatus.
Objective Data
-
Intake and Output
05/21/25 05/22/25 05/23/25
06:59 06:59 06:59
Intake Total 755 / 755 1838 100 / 100
Output Total 300 / 300
Balance 455 / 455 1838 100 / 100
Intake:
Oral fluids 30 / 30 240 / 240
IV fluids (Total) 625 / 625 1375 / 1375
IV piggybacks 100 / 100 224 / 224 100 / 100
Output:
Urine, Voided 300 / 300
Other:
Number of approximated SMALL 1
amounts of urine
Number of approximated MODERATE 1
amounts of urine
How many times incontinent 1
SMALL amount urine
How many times incontinent 1
MODERATE amount urine
How many times incontinent 1
SATURATED amount urine
Number of unmeasured liquid
stools
Rectum 1
Vital Signs
Temp Pulse Resp BP Pulse Ox
98 F 83 18 125/84 95
05/22/25 16:55 05/22/25 17:22 05/22/25 17:22 05/22/25 17:22 05/22/25 17:15
Lab Results
05/22/25 03:56
05/22/25 11:09
Calcium 8.8 mg/dl (8.4-10.2) 05/22/25 11:09
Total Bilirubin 4.5 mg/dl (0.2-1.3) H 05/20/25 16:09
AST 28 U/L (17-59) 05/20/25 16:09
ALT 30 U/L (0-50) 05/20/25 16:09
Alkaline Phosphatase 59 U/L (38-126) 05/20/25 16:09
Total Protein 7.2 g/dl (6.3-8.2) 05/20/25 16:09
Albumin 4.1 g/dl (3.5-5.0) 05/20/25 16:09
Physical Exam
-
Gen: NAD
AbdL soft, mild tenderness in RLQ, obese, mild distension, palpable seroma at midline hernia repair, non-peritoneal, IR drain with feculent output
Patient has a galindo catheter: No
Patient has a central line: No
[2025-05-22] MEDS: TOPROL XL 25 MG PO (19:47)
[2025-05-23] VITALS (12 sets, daily range): BP systolic 125–167; BP diastolic 67–93; BMI 31.7
[2025-05-23] MEDS: VISBIOME 2 CAP PO (00:01)
[2025-05-23] MEDS: TORADOL 10 MG IV ×3 (03:34→18:17)
[2025-05-23 03:51] LABS: Hematocrit 36.5 % (39.0-52.0); Hemoglobin 12.9 g/dL (13.0-18.0); Mean Corp Hgb Conc. 35.3 g/dL (33.0-37.0); Mean Corpuscular Volume 87.1 fL (80.0-94.0); Nucleated Red Blood Cells % 0.4 % (-); Platelet Count 313 10^3/uL (130-400); Red Cell Dist. Width 14.7 % (11.5-14.5)
--- NOTE | 2025-05-23 04:12 | PTCARENOTE ---
patient had multiple episodes of diarrhea. Patient stating 'it is every time he drinks anything'. TT PULP PRESS TENDER and new orders placed, see MAR. Assessment and vital signs as documented. Patient resting in bed with call fiore in reach.
[2025-05-23 04:19] LABS: Blood Urea Nitrogen 19 mg/dl (9-20); Calcium 8.9 mg/dl (8.4-10.2); Carbon Dioxide 20 mmol/L (22-30); Chloride 107 mmol/L (98-107); Estimated Creatinine Clearance 104 ml/min; Glucose 140 mg/dl (70-99); Potassium 3.6 mmol/L (3.5-5.1); Sodium 135 mmol/L (135-145); eGFR > 60.00
[2025-05-23] MEDS: UNASYN IV ×3 (06:01→18:17)
--- NOTE | 2025-05-23 08:26 | PTCARENOTE ---
Patient received from senior property accountant. Patient resting comfortably in bed. AAO, VSS. No events noted overnight. Continued complaints of abdominal and lower back pain at this times but improved after drain placement, see MAR. Also with some
complaints of reflux, will get TUMS ordered. Currently on Room Air. D5W with bicarb ordered. Right AMALIA drain with purulent drainage. Continuing ABX. ECHO done this AM. Call fiore in reach.
[2025-05-23] MEDS: VISBIOME 1 CAP PO (08:35)
[2025-05-23] MEDS: NSS (PRESERVATIVE FREE) 10 ML IV (08:35)
[2025-05-23] MEDS: PROTONIX IV 40 MG IV (08:35)
[2025-05-23 09:38] LABS: Magnesium 1.9 mg/dl (1.6-2.3)
--- NOTE | 2025-05-23 10:09 | W.PN.HOSP.TC ---
Today's Communication/Plan
-
Continue IV antibiotics.
Continue AMALIA drain.
Clear liquid diet.
Follow stool cultures.
Follow repeated blood cultures.
Echocardiogram
Telemetry monitoring for recurrent NSVT.
Increase beta-moraima.
Continue alkalinized IV fluids for normal anion gap metabolic acidosis
Assessment / Plan
Assessment / Plan
Impression
Acute perforated appendicitis
Ileitis
Strep viridans bacteremia
Normal anion gap metabolic acidosis secondary to GI losses
Nonsustained VT
Other conditions
Persistent atrial fibrillation.
History of left lower extremity DVT and bilateral PE 2018, provoked by travel and prolonged immobility.
Anticoagulation with Eliquis.
Essential hypertension.
Dyslipidemia.
Valvular disease including mild AR, mild MR, mild TR.
Reactive airway disease.
GERD.
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
Pancreatic neuroendocrine tumor, status post partial pancreatectomy 2018
Asplenia
BPH
Obesity BMI 32
Remote history of tobacco abuse.
Plan:
Acute perforated appendicitis per
Presents with persistent right lower quadrant pain and fever pain and fever.
Hemodynamically stable with no evidence of sepsis
Exam with right lower quadrant tenderness but
WBC 26.
CT scan
1. ACUTE PERFORATED APPENDICITIS surrounded by severe inflammation.
2. Severe reactive wall thickening and submucosal edema in the terminal ileum.
3. Small volume ascites.
4. Moderate reactive lymphadenopathy in the right pelvis.
5. Large 13.1 cm midline anterior abdominal wall fluid collection. Diagnostic possibilities are (1) a seroma, (2) a liquefied hematoma, or (3) an abscess.
6. Severe diverticulosis in the descending and sigmoid colon.
7. Previous distal pancreatectomy and splenectomy.
8. Moderate diffuse hepatic steatosis.
9. Small hiatal hernia.
10. Moderate number of bilateral renal cysts.
11. Severely enlarged prostate gland.
12. Severe multilevel lumbar discogenic degenerative disease.
Blood culture positive for strep viridans
Status post percutaneous abscess drain by interventional radiology on 05/22
Wound cultures pending
Antibiotics changed from cefepime and Flagyl to Unasyn on 05/22
Repeat blood cultures pending
Echocardiogram
Persistent diarrhea likely due to surrounding ileitis. Will check stool culture and stool for C. difficile
Liquid diet as per surgery
Cleared to resume anticoagulation with Eliquis.
Normal anion gap metabolic acidosis secondary to diarrheal stool.
Suspect also pancreatic insufficiency with prior history of partial pancreatectomy
IV fluids changed alkalinized
Follow BMP
Cardiovascular:
Persistent atrial fibrillation
Essential hypertension
Episode of nonsustained VT on telemetry 05/23. Asymptomatic.
Follow-up ECG A-fib with RVR at 107
Echo pending
Check troponin, magnesium level
Continue telemetry monitoring. If persistent, consider cardiology evaluation
Increase Toprol-XL to 25 mg twice daily
Hold Irbesartan to avoid hypotension
Eliquis resumed
Mechanical DVT prophylaxis while off Eliquis
Full code
Anticipated Discharge: > 48 hours
Subjective/Interval History
-
Date of Service: May 23, 2025
Objective Data
-
Labs:
Laboratory Results
05/23/25
03:42
WBC 20.9 H
Hgb 12.9 L
Hct 36.5 L
Plt Count 313
Sodium 135
Potassium 3.6
Chloride 107
Carbon Dioxide 20 L
BUN 19
Creatinine 0.7
Glucose 140 H
Calcium 8.9
Vital Signs:
Vital Signs
Temp Pulse Resp BP Pulse Ox
98.1 F 108 24 125/74 96
05/23/25 03:00 05/23/25 06:00 05/23/25 06:00 05/23/25 06:00 05/23/25 06:00
I&O
05/22/25 05/23/25 05/24/25
06:59 06:59 06:59
Intake Total 1838 100 / 100
Output Total
Balance 1838 90 / 90
Physical Exam
-
General: Well Developed and No Apparent Distress
HEENT: Normocephalic, Atraumatic and Moist Mucous Membranes
Respiratory: Clear to Auscultation
Cardiac: Regular Rhythm and S1/S2; Negative Murmur, Rub or Gallop
GI: Soft, Nontender, Nondistended, Normal Bowel Sounds and Other (Right lower quadrant percutaneous drain with purulent discharge); Negative Organomegaly
Rectal: Deferred by Provider
Musculoskeletal: No Clubbing, No Cyanosis and No Edema
Skin: Negative Rash
Neuro: Nonfocal/Grossly Intact
[2025-05-23 10:18] LABS: Troponin I < 0.012 ng/ml
--- NOTE | 2025-05-23 11:14 | W.PN.GS2 ---
Addendum entered and electronically signed by Aquilino Lebron MD 05/23/25 15:39:
I saw and examined the patient.
The Bench Worker's note was reviewed and I agree with the note.
Comment: Pt on the toilet passing flatus and stool during our encounter. Pain controlled. C/o nausea, worse with PO intake. Drain seropurulent. WBC trending down. Would cont CLD given onging nausea. Monitor drain output.
Original Note:
Documented by User: Vincenzo Anguiano MD, Resident 05/23/25 15:30
Today's Communication / Plan
-
Continue clears diet for another day due to ongoing moderate nausea
Continue monitoring drain site and output
Continue Abx course until infection clears
Continue pain and nausea meds prn
Patient is encouraged to OOB and ambulate
Patient is educated on BRATY diet for when he can eventually tolerate solids.
Trend labs until WBC count continues to drop
Assessment / Plan
-
Patient is a 80 yo M p/w perforated appendicitis with associated abscess formation
IR drain of abscess placed on 05/22
AVSS
Labs notable for slight decrease in WBC count, stable Hb, normal platelets, normal electrolytes, renal function and an high blood glucose level.
Clinically stable and improved post drain procedure. Tolerating trial of clear liquids, Culture specimen is Strep Viridans which can be treated with (Amp/Sulbactam). Will likely be discharge with IR drain in place and outpatient follow-up.
-- Continue clear liquid diet
-- Abx: Unasyn 3 mg Q6h IV
-- Follow labs to observe trend of decrease WBC count
-- Continue pain meds prn
-- Continue nausea meds prn
-- Continue Eliquis for anticoag
Time Spent
Total Time Spent with Patient (in minutes): 20
Subjective Data
-
Date of Service: May 23, 2025
80 y/o M w/ PMH Afib (was on Eliquis with last dose on morning of 05/20/2025), S/P distal pancreatectomy splenectomy for a pancreatic neoplasm as well as ventral hernia repair with mesh (Noted that a large seroma was incidentally found on CT imaging
and was not known by patient), who presented with 2 days of abdominal pain found to be acute perforated appendicitis with air fluid collection in the right lower quadrant. He is grateful to have his percutaneous drain placed. Patient denies any
fever, vomiting, but admits to mild nausea. He states that he has passed minimal flatus and that he continues to have frequent watery diarrhea every 1.5 hours that started getting worse since last night. Patient states that his nurse recommended a
probiotic but it does seem to help, Patient denies pain and states that his pain medication is working well. He states that he has been tolerating his liquid diet. Patient requests any medication that can help ease up his diarrhea.
Objective Data
-
Intake and Output
05/22/25 05/23/25 05/24/25
06:59 06:59 06:59
Intake Total 1838 100 / 100
Output Total
Balance 1838
Intake:
Oral fluids 240 / 240
IV fluids (Total) 1375 / 1375
IV piggybacks 224 / 224 100 / 100
Output:
Drain Output (Total)
Right Lower Abdomen Placed in
IR
Other:
Number of approximated SMALL 1
amounts of urine
Number of approximated MODERATE 1 1
amounts of urine
How many times incontinent 1
SMALL amount urine
How many times incontinent 1
MODERATE amount urine
Number of unmeasured liquid
stools
Rectum 1
Vital Signs
Temp Pulse Resp BP Pulse Ox
98.1 F 108 24 125/74 96
05/23/25 03:00 05/23/25 06:00 05/23/25 06:00 05/23/25 06:00 05/23/25 06:00
Lab Results
05/23/25 03:42
05/23/25 03:42
Calcium 8.9 mg/dl (8.4-10.2) 05/23/25 03:42
Magnesium 1.9 mg/dl (1.6-2.3) 05/23/25 03:42
Total Bilirubin 4.5 mg/dl (0.2-1.3) H 05/20/25 16:09
AST 28 U/L (17-59) 05/20/25 16:09
ALT 30 U/L (0-50) 05/20/25 16:09
Alkaline Phosphatase 59 U/L (38-126) 05/20/25 16:09
Total Protein 7.2 g/dl (6.3-8.2) 05/20/25 16:09
Albumin 4.1 g/dl (3.5-5.0) 05/20/25 16:09
AFVSS
Labs: WBC decreased from 24.7 to 20.9 trending downwards
Percutaneous Drain: Successful CT guided drainage catheter placement into a pelvic abscess, yielding 25 mL of grossly purulent fluid. Specimen identified as Strep Viridans.
Physical Exam
-
General: NAD
AAAOx3
Chest: Mild wheezing
Abdomen: No pain or tenderness when palpating near the drain. There is some distension around the area. The drain is collecting fluid that is cazares in color and consists of some pus. No redness or erythema around the drain site.
Patient has a galindo catheter: No
Patient has a central line: No

Documented by User: Aquilino Lebron MD 05/23/25 15:26
Today's Communication / Plan
-
Cont abx
Cont drain
Trend WBC
check c dif
[2025-05-23] MEDS: SODIUM BICARBONATE 1150 MEQ IV (11:43)
[2025-05-23] MEDS: TOPROL XL 25 MG PO ×2 (11:44→19:42)
--- NOTE | 2025-05-23 13:49 | W.PN.ID1 ---
Date of Service
Date of Service: May 23, 2025
Today's Communication
Continue Unasyn
Assessment / Plan
# Perforated appendicitis with localized abscess
# Viridans group Streptococcus bacteremia from intra-abdominal source
# fever - resolved
# leukocytosis improved
# Reported history of penicillin allergy�rash. Tolerating Unasyn.
# History of splenectomy and partial pancreatectomy
- Repeat blood cultures neg tod ate
-7/8 s/p IR drainage of right lower quadrant abscess
aerobic and anaerobic culture pending
-Continue Unasyn 3 g IV every 6 hours pending cx data.
- Trend white count and temperature.
# Conditions DIRECTOR ELECTRONICS
Hypertension
Dyslipidemia
Atrial fibrillation
LLE DVT/PE
Restrictive lung disease
BPH
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
Left total knee replacement
Incisional hernia repair
Chief Complaint
-: Other (Perforated appendicitis)
Subjective / Review of Systems
Decreased abdominal pain
Vital Signs / Physical Exam
Vital Signs
Vital Signs
Temp Pulse Resp BP Pulse Ox
97.6 F 99 24 132/89 96
05/23/25 11:05 05/23/25 11:44 05/23/25 06:00 05/23/25 11:44 05/23/25 06:00
Physical Exam
Constitutional: No Acute Distress
Cardiovascular: Regular Rate and S1/S2
Pulmonary: Clear
Gastrointestinal: Soft, Tender (Mild right lower quadrant), Non Distended, Normal Bowel Sounds and Other (RLQ AMALIA drain purulent fluid)
Genito-Urinary: Negative CVA Tenderness
Extremities: Negative Edema
Neurological: AO x 3
Objective Data
Lab Data
Lab Results
05/23/25 03:42
05/23/25 03:42
Estimated Creat Clear 104 ml/min 05/23/25 03:42
Lactic Acid 1.6 mmol/L (0.7-2.0) 05/20/25 20:03
Total Bilirubin 4.5 mg/dl (0.2-1.3) H 05/20/25 16:09
AST 28 U/L (17-59) 05/20/25 16:09
ALT 30 U/L (0-50) 05/20/25 16:09
Alkaline Phosphatase 59 U/L (38-126) 05/20/25 16:09
Most recent labs reviewed.
Micro Results:
05/23/25 09:24 C. difficile GDH Antigen & Toxins - Final
Feces/Stool Negative for toxigenic C.difficile
05/22/25 16:50 Wound Culture - Preliminary
Appendix Gram Stain - Preliminary
05/22/25 16:50 Anaerobic Culture - Preliminary
Abscess Culture pending. Anaerobic cultures are examined after 3
days incubation. Additional information to follow.
05/22/25 11:48 Blood Culture - Preliminary
Blood/Venous No Growth in 24 hours- Final report to follow
05/22/25 11:09 Blood Culture - Preliminary
Blood/Venous No Growth in 24 hours- Final report to follow
05/20/25 20:00 Blood Culture - Preliminary
Blood/Venous Viridans Streptococcus Group
Gram Stain - Preliminary
05/23/25 09:24 Salmonella/Shigella Culture - Pending
Feces/Stool Campylobacter Culture - Pending
Shiga Toxin Test - Pending
Stool Leukocytes - Pending
05/20/25 20:59 Blood Culture - Preliminary
Blood/Venous No Growth in 48 hours- Final report to follow
05/21/25 05:11 Urine Culture - Final
Urine NO GROWTH
05/20/25 CT a/p: ACUTE PERFORATED APPENDICITIS surrounded by severe inflammation. Severe reactive wall thickening and submucosal edema in the terminal ileum.Small volume ascites.Moderate reactive lymphadenopathy in the right pelvis. Large 13.1 cm
midline anterior abdominal wall fluid collection. Diagnostic possibilities are (1) a seroma, (2) a liquefied hematoma, or (3) an abscess.
--- NOTE | 2025-05-23 17:24 | CM ---
Patient with Dx Acute perforated appendicitis w associated abscess. Percutaneous abscess drainage catheter placed yesterday. Room air. Receiving IVF w Bicarb, IV Abx. Clear liquids. Per nurse; A/O, ambulatory in room.
CM continuing to follow for d/c needs.
Plan home.
[2025-05-23] MEDS: TUMS CHEWABLE TABLET 200 MG PO (18:20)
[2025-05-23] MEDS: ELIQUIS 5 MG PO (19:42)
[2025-05-24] VITALS (9 sets, daily range): BP systolic 123–145; BP diastolic 71–96; BMI 31.8
[2025-05-24] MEDS: TORADOL 10 MG IV ×3 (00:32→16:44)
[2025-05-24] MEDS: UNASYN IV ×4 (00:32→18:07)
[2025-05-24] MEDS: SODIUM BICARBONATE 1150 MEQ IV (01:32)
[2025-05-24] MEDS: TYLENOL 650 MG PO (04:02)
[2025-05-24] MEDS: TUMS CHEWABLE TABLET 200 MG PO ×2 (04:02→16:34)
--- NOTE | 2025-05-24 04:25 | PTCARENOTE ---
Patient AAOX3. Room air sating at 96%. Afib on monitor. AMALIA on right side with purulent drainage. Patient having frequent loose BMs. DW5 with sodium bicarb running at 100 ml/hr. Patient wearing SCDs overnight. Assessment and vital signs as charted.
call fiore in reach.
[2025-05-24 04:30] LABS: Hematocrit 35.7 % (39.0-52.0); Hemoglobin 12.7 g/dL (13.0-18.0); Mean Corp Hgb Conc. 35.6 g/dL (33.0-37.0); Mean Corpuscular Volume 86.4 fL (80.0-94.0); Nucleated Red Blood Cells % 0.2 % (-); Platelet Count 363 10^3/uL (130-400); Red Cell Dist. Width 14.5 % (11.5-14.5)
[2025-05-24 04:56] LABS: Blood Urea Nitrogen 17 mg/dl (9-20); Calcium 9.1 mg/dl (8.4-10.2); Carbon Dioxide 24 mmol/L (22-30); Chloride 103 mmol/L (98-107); Estimated Creatinine Clearance 104 ml/min; Glucose 135 mg/dl (70-99); Potassium 3.4 mmol/L (3.5-5.1); Sodium 134 mmol/L (135-145); eGFR > 60.00
[2025-05-24] MEDS: KCL 40 MEQ PO (06:15)
[2025-05-24] MEDS: TOPROL XL 25 MG PO ×2 (09:11→21:49)
[2025-05-24] MEDS: PROTONIX IV 40 MG IV (09:12)
[2025-05-24] MEDS: VISBIOME 1 CAP PO (09:12)
[2025-05-24] MEDS: ELIQUIS 5 MG PO ×2 (09:12→21:49)
[2025-05-24] MEDS: NSS (PRESERVATIVE FREE) 10 ML IV (09:12)
--- NOTE | 2025-05-24 09:52 | W.PN.ID1 ---
Date of Service
Date of Service: May 24, 2025
Today's Communication
Continue Unasyn.
Assessment / Plan
# Perforated appendicitis with localized abscess
# Viridans group Streptococcus bacteremia from intra-abdominal source
# fever - resolved
# leukocytosis improved
# Reported history of penicillin allergy�rash. Tolerating Unasyn.
# History of splenectomy and partial pancreatectomy
- Repeat blood cultures neg to date
-7/8 s/p IR drainage of right lower quadrant abscess
aerobic cx: Strep species, E. coli, GNR. Anaerobic culture pending
-Continue Unasyn 3 g IV every 6 hours pending cx data.
- Trend white count
# Conditions MANAGER IMAGE
Hypertension
Dyslipidemia
Atrial fibrillation
LLE DVT/PE
Restrictive lung disease
BPH
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
Left total knee replacement
Incisional hernia repair
Chief Complaint
-: Other (Perforated appendicitis)
Subjective / Review of Systems
No new complaints.
Vital Signs / Physical Exam
Vital Signs
Vital Signs
Temp Pulse Resp BP Pulse Ox
98.3 F 100 20 139/89 96
05/24/25 07:25 05/24/25 09:11 05/24/25 06:00 05/24/25 09:11 05/24/25 06:00
Physical Exam
Constitutional: No Acute Distress
Cardiovascular: Regular Rate and S1/S2
Pulmonary: Clear
Gastrointestinal: Soft, Tender (RLQ), Non Distended and Other (AMALIA drain; thin cloudy fluid)
Genito-Urinary: Negative CVA Tenderness
Extremities: Negative Edema
Neurological: AO x 3
Objective Data
Lab Data
Lab Results
05/24/25 04:09
05/24/25 04:09
Estimated Creat Clear 104 ml/min 05/24/25 04:09
Lactic Acid 1.6 mmol/L (0.7-2.0) 05/20/25 20:03
Total Bilirubin 4.5 mg/dl (0.2-1.3) H 05/20/25 16:09
AST 28 U/L (17-59) 05/20/25 16:09
ALT 30 U/L (0-50) 05/20/25 16:09
Alkaline Phosphatase 59 U/L (38-126) 05/20/25 16:09
Most recent labs reviewed.
Micro Results:
05/22/25 16:50 Wound Culture - Preliminary
Appendix Gram negative bacilli
Escherichia coli
Streptococcus species
Gram Stain - Preliminary
05/23/25 09:24 Salmonella/Shigella Culture - Pending
Feces/Stool Campylobacter Culture - Pending
Shiga Toxin Test - Final
No E. coli Shiga Toxin 1 or 2 detected.
Stool Leukocytes - Final
05/20/25 20:59 Blood Culture - Preliminary
Blood/Venous No Growth in 72 hours- Final report to follow
05/23/25 09:24 C. difficile GDH Antigen & Toxins - Final
Feces/Stool Negative for toxigenic C.difficile
05/22/25 16:50 Anaerobic Culture - Preliminary
Abscess Culture pending. Anaerobic cultures are examined after 3
days incubation. Additional information to follow.
05/22/25 11:48 Blood Culture - Preliminary
Blood/Venous No Growth in 24 hours- Final report to follow
05/22/25 11:09 Blood Culture - Preliminary
Blood/Venous No Growth in 24 hours- Final report to follow
05/20/25 20:00 Blood Culture - Preliminary
Blood/Venous Viridans Streptococcus Group
Gram Stain - Preliminary
05/21/25 05:11 Urine Culture - Final
Urine NO GROWTH
05/20/25 CT a/p: ACUTE PERFORATED APPENDICITIS surrounded by severe inflammation. Severe reactive wall thickening and submucosal edema in the terminal ileum.Small volume ascites.Moderate reactive lymphadenopathy in the right pelvis. Large 13.1 cm
midline anterior abdominal wall fluid collection. Diagnostic possibilities are (1) a seroma, (2) a liquefied hematoma, or (3) an abscess.
--- NOTE | 2025-05-24 10:27 | W.PN.HOSP.TC ---
Addendum entered and electronically signed by Al Murillo MD 05/24/25 14:50:
daily NSS flushes for home for his AMALIA please send Rx to [facility]
Original Note:
Today's Communication/Plan
-
Continue with IV Unasyn
Diet per surgery
Replete potassium
Out of bed
PT
Assessment / Plan
Assessment / Plan
Impression
Acute perforated appendicitis with localized abscess
Ileitis
Strep viridans bacteremia from intra-abdominal source
Normal anion gap metabolic acidosis secondary to GI losses
Nonsustained VT
Hypokalemia
Other conditions
Persistent atrial fibrillation.
History of left lower extremity DVT and bilateral PE 2018, provoked by travel and prolonged immobility.
Anticoagulation with Eliquis.
Essential hypertension.
Dyslipidemia.
Valvular disease including mild AR, mild MR, mild TR.
Reactive airway disease.
GERD.
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
Pancreatic neuroendocrine tumor, status post partial pancreatectomy 2018
Asplenia
BPH
Obesity BMI 32
Remote history of tobacco abuse.
Plan:
Acute perforated appendicitis per
Presents with persistent right lower quadrant pain and fever pain and fever.
Hemodynamically stable with no evidence of sepsis
Exam with right lower quadrant tenderness but
WBC 26.
CT scan
1. ACUTE PERFORATED APPENDICITIS surrounded by severe inflammation.
2. Severe reactive wall thickening and submucosal edema in the terminal ileum.
3. Small volume ascites.
4. Moderate reactive lymphadenopathy in the right pelvis.
5. Large 13.1 cm midline anterior abdominal wall fluid collection. Diagnostic possibilities are (1) a seroma, (2) a liquefied hematoma, or (3) an abscess.
6. Severe diverticulosis in the descending and sigmoid colon.
7. Previous distal pancreatectomy and splenectomy.
8. Moderate diffuse hepatic steatosis.
9. Small hiatal hernia.
10. Moderate number of bilateral renal cysts.
11. Severely enlarged prostate gland.
12. Severe multilevel lumbar discogenic degenerative disease.
Blood culture positive for strep viridans
Status post percutaneous abscess drain by interventional radiology on 05/22
Wound cultures with polymicrobial
Antibiotics changed from cefepime and Flagyl to Unasyn on 05/22
Repeat blood cultures remains negative
Echocardiogram normal ventricular size systolic function without regional wall motion abnormality. Aortic valve sclerosis without stenosis. No vegetation identified.
Persistent diarrhea likely due to surrounding ileitis. Will check stool culture and stool for C. difficile
Liquid diet as per surgery
Leukocytosis improving
Was restarted on Eliquis 05/23/2025
Normal anion gap metabolic acidosis secondary to diarrheal stool.
Suspect also pancreatic insufficiency with prior history of partial pancreatectomy
IV fluids changed alkalinized. Acidosis resolved.
Follow BMP
Cardiovascular:
Persistent atrial fibrillation
Essential hypertension
Episode of nonsustained VT on telemetry 05/23. Asymptomatic.
Follow-up ECG A-fib with RVR at 107
Echo as above
Continue telemetry monitoring. If persistent, consider cardiology evaluation
Increase Toprol-XL to 25 mg twice daily
Hold Irbesartan to avoid hypotension
Eliquis resumed
DVT prophylaxis�Eliquis
Full code
Okay to transfer out of IMU
Anticipated Discharge: > 48 hours
Subjective/Interval History
-
Date of Service: May 24, 2025
states of abd cramps
remains with loose stools
Objective Data
-
Labs:
Laboratory Results
05/24/25
04:09
WBC 13.2 H
Hgb 12.7 L
Hct 35.7 L
Plt Count 363
Sodium 134 L
Potassium 3.4 L
Chloride 103
Carbon Dioxide 24
BUN 17
Creatinine 0.7
Glucose 135 H
Calcium 9.1
Vital Signs:
Vital Signs
Temp Pulse Resp BP Pulse Ox
98.3 F 100 20 139/89 96
05/24/25 07:25 05/24/25 09:11 05/24/25 06:00 05/24/25 09:11 05/24/25 06:00
I&O
05/23/25 05/24/25 05/25/25
06:59 06:59 06:59
Intake Total 100 / 100
Output Total 50 / 50
Balance 90 / 90 -40 / -40
Physical Exam
-
General: Well Developed and No Apparent Distress
HEENT: Normocephalic, Atraumatic and Moist Mucous Membranes
Respiratory: Clear to Auscultation
Cardiac: Regular Rhythm and S1/S2; Negative Murmur, Rub or Gallop
GI: Soft, Nondistended, Normal Bowel Sounds, Tender and Other (Right lower quadrant percutaneous drain with purulent discharge); Negative Organomegaly
Rectal: Deferred by Provider
Musculoskeletal: No Clubbing, No Cyanosis and No Edema
Skin: Negative Rash
Neuro: Awake and Nonfocal/Grossly Intact
Psych: Calm
Data Reviewed
-
Total Time Spent with Patient (in minutes): 55
--- NOTE | 2025-05-24 11:09 | W.PN.GS2 ---
Addendum entered and electronically signed by Bonifacio Mcmillan MD 05/24/25 11:42:
Patient seen and examined in follow-up with residents. Agree with documented progress note with additions noted here.
Improving abdominal pain, multiple loose bowel movements/diarrhea
Slight nausea but patient also states that he has an appetite and desires to eat food. No vomiting.
AFVSS
NAD AAOx3
ABD: Soft, protuberant but not distended. Mild tenderness palpation localized in the right lower quadrant but no rebound, no rigidity, no guarding
IR drain in place with enteric like contents indicating probable communication with site of perforation towards base of appendix/cecum
A/P: 80-year-old male with acute appendicitis complicated by perforation with contained abscess; status post IR drainage
Appears to have adequate source control with current drain
WBC now down to 13
No peritonitis
Cautious dietary advancement to low residue avoiding large portions
Continue to monitor in hospital today
On Unasyn; infectious disease following
Maintain IR drain for foreseeable future and will be discharged with it in place.
Subsequent outpatient surgical follow-up with future imaging, timing to be determined based on clinical course
Will follow
Original Note:
Today's Communication / Plan
-
Patient was educated on how his diet will progress and was recommended to stick to a low residue diet when the time comes to advance diet.
For now, continue patient on liquids due to his indigestion and bloating.
Continue to monitor labs for downward trend of WBC count.
Continue to monitor BM and flatus.
Patient is clinically stable and progressing well.
Continue to monitor drain output.
Assessment / Plan
-
Patient is a 80 yo M p/w perforated appendicitis with associated abscess formation
IR drain of abscess placed on 05/22
AVSS
Labs notable for continued trend of decrease in WBC count, stable Hb, normal platelets, normal electrolytes and renal function.
Clinically stable and improved post drain procedure. Tolerating trial of clear liquids, Culture specimen is Strep Viridans which is being treated with (Amp/Sulbactam). Will likely be discharge with IR drain in place and outpatient follow-up.
-- Continue clear liquid diet for today
-- Continue Abx: Unasyn 3 mg Q6h IV
-- Follow labs to observe trend of decrease WBC count
-- Continue pain meds prn
-- Continue nausea meds prn
-- Continue Eliquis for anticoag
Time Spent
Total Time Spent with Patient (in minutes): 30
Subjective Data
-
Date of Service: May 24, 2025
80 y/o M w/ PMH Afib (was on Eliquis with last dose on morning of 05/20/2025), S/P distal pancreatectomy splenectomy for a pancreatic neoplasm as well as ventral hernia repair with mesh (Noted that a large seroma was incidentally found on CT imaging
and was not known by patient), who presented with 2 days of abdominal pain found to be acute perforated appendicitis with air fluid collection in the right lower quadrant. IR placed a percutaneous drain. Patient denies any fever, vomiting, but
admits to mild nausea. He states that he has passed some flatus and that he continues to have frequent watery diarrhea every 2 hours for the last 2 nights. Patient denies pain, states that his pain medication is working well and rates his pain as
3/10. He states that he has been tolerating his liquid diet, but he is hoping to advance to a solid food diet.
Objective Data
-
Intake and Output
05/23/25 05/24/25 05/25/25
06:59 06:59 06:59
Intake Total 100 / 100
Output Total 50 / 50
Balance 90 / 90 -40 / -40
Intake:
IV piggybacks 100 / 100
Amount instilled into Drain (
Total)
Right Lower Abdomen Placed in
IR
Output:
Drain Output (Total)
Right Lower Abdomen Placed in
IR
Other:
Number of approximated SMALL 1 1 1
amounts of urine
Number of approximated MODERATE 1
amounts of urine
How many times incontinent 1
MODERATE amount urine
Vital Signs
Temp Pulse Resp BP Pulse Ox
98.3 F 100 20 139/89 96
05/24/25 07:25 05/24/25 09:11 05/24/25 06:00 05/24/25 09:11 05/24/25 06:00
Lab Results
05/24/25 04:09
05/24/25 04:09
Calcium 9.1 mg/dl (8.4-10.2) 05/24/25 04:09
Magnesium 1.9 mg/dl (1.6-2.3) 05/23/25 03:42
Total Bilirubin 4.5 mg/dl (0.2-1.3) H 05/20/25 16:09
AST 28 U/L (17-59) 05/20/25 16:09
ALT 30 U/L (0-50) 05/20/25 16:09
Alkaline Phosphatase 59 U/L (38-126) 05/20/25 16:09
Total Protein 7.2 g/dl (6.3-8.2) 05/20/25 16:09
Albumin 4.1 g/dl (3.5-5.0) 05/20/25 16:09
AFVSS
Labs: WBC continues to trend downward (13.2)
Physical Exam
-
General: NAD
AAAOx3
Chest: No labored breathing
Abdomen: Mild distention and minimal pain on palpation of the area around the drain. Drain is still emptying out cazares/brown pus colored fluid.
Patient has a galindo catheter: No
Patient has a central line: No
--- NOTE | 2025-05-24 12:43 | CM ---
Patient seen at bedside
AMALIA drain
discussed VN - would like [facility]
notified [facility] liaison, referral will enter in careport
PLAN: Home with [facility] when stable
--- NOTE | 2025-05-24 14:40 | VNURNOTE ---
Home Health Liaison met with patient, spouse, and daughter at bedside to discuss [facility] nurse/therapy, visits, schedule and homebound status. Patient is agreeable and understands that visits at home will be 2-3 x per week to assess and teach medical
management. Explained that VN will teach drain care and flushing (if ordered upon DC). Spouse and daughter will find a friend to flush drain days VN not visiting; they are not comfortable learning. Patient's [facility] pharmacy does not carry NSS
flushes. This author confirmed that [facility] does. If ordered NSS flushes upon DC, Rx will need to go to [facility]. Hospitalist notified. Patient is aware that [facility] will contact them for start of care in 1-2 days after discharge
from .
[facility] referral completed in Care Port.
[2025-05-24] MEDS: LR 1000 IV (15:33)
--- NOTE | 2025-05-24 15:53 | PTCARENOTE ---
assumed care for pt s/p transfer from IMU AOx3. Denies pain. LCTA RA, irregular HS, afib. abd round obese, pt reports nausea but does not want to take zofran. AMALIA draining green purulent fluid. dressing CDI skin otherwise intact. no edmea, +PP. CB in
reach pt instructed to use. IVF D/T nausea in IMU, unable to tolerate low fat diet prior to transfer.
[2025-05-24] MEDS: COMPAZINE 10 MG IV (17:00)
[2025-05-25] VITALS (7 sets, daily range): BP systolic 124–143; BP diastolic 72–88; PULSE 100; O2SAT 97; BMI 31.9
[2025-05-25] MEDS: UNASYN IV ×4 (00:19→18:30)
[2025-05-25] MEDS: LR 1000 IV (05:04)
[2025-05-25] MEDS: TYLENOL 650 MG PO ×3 (05:04→21:50)
[2025-05-25 08:06] LABS: Hematocrit 33.8 % (39.0-52.0); Hemoglobin 11.8 g/dL (13.0-18.0); Mean Corp Hgb Conc. 34.9 g/dL (33.0-37.0); Mean Corpuscular Volume 87.8 fL (80.0-94.0); Nucleated Red Blood Cells % 0 % (-); Platelet Count 381 10^3/uL (130-400); Red Cell Dist. Width 14.9 % (11.5-14.5)
--- NOTE | 2025-05-25 08:10 | PN.CDI ---
CDI
- -
CDI:
Physician Documentation Request
Admit Date: 05/20/25 21:58
Dear Doctor Chidi,
The diagnosis of Sepsis was documented in H&P, but is not consistently noted in subsequent documentation.
7 T max 101.7
Presenting heart rate 111
Presenting respiratory rate 18
Laboratory Tests
05/20/25
16:09
WBC 26.0 H
Please clarify the following:
____ - Sepsis was present on admission
____ - Sepsis was ruled out
____ - Other
Use of terms such as suspected, likely, concern for, or probable (associated with a specific diagnosis that is being evaluated, monitored, or treated as if it exists) are acceptable and can be coded in the inpatient setting, when documented at the
time of discharge.
Thank you,
Yessy Block RN, BSN
CDI Specialist
tiger text
Please use your independent medical judgment in providing your response.
--- NOTE | 2025-05-25 08:12 | PN.CDI ---
Addendum entered and electronically signed by Amber Mulligan MD 05/26/25 09:59:
Hyponatremia
Hypokalemia, resolved
Original Note:
CDI
- -
CDI:
Physician Documentation Request
Admit Date: 05/20/25 21:58
Dear Doctor Chidi,
Patient admitted with perforated appendicitis.
Sodium results:
Laboratory Tests
05/20/25 05/21/25 05/22/25
16:09 04:35 03:56
Sodium 131 L 131 L 136
Could you please provide a diagnosis that supports the above lab abnormalities and additional evaluation, monitoring:
Hyponatremia
Abnormal lab value clinically insignificant
Other
Use of terms such as suspected, likely, concern for, or probable (associated with a specific diagnosis that is being evaluated, monitored, or treated as if it exists) are acceptable and can be coded in the inpatient setting, when documented at the
time of discharge.
Thank you,
Yessy Block RN, BSN
CDI Specialist
tiger text
Please use your independent medical judgment in providing your response.
[2025-05-25] MEDS: PROTONIX IV 40 MG IV (08:24)
[2025-05-25] MEDS: NSS (PRESERVATIVE FREE) 10 ML IV (08:24)
[2025-05-25] MEDS: TOPROL XL 25 MG PO ×2 (08:24→20:35)
[2025-05-25] MEDS: VISBIOME 1 CAP PO (08:24)
[2025-05-25] MEDS: ELIQUIS 5 MG PO ×2 (08:24→20:35)
[2025-05-25 08:30] LABS: Blood Urea Nitrogen 14 mg/dl (9-20); Calcium 8.2 mg/dl (8.4-10.2); Chloride 102 mmol/L (98-107); Estimated Creatinine Clearance 104 ml/min; Potassium 3.4 mmol/L (3.5-5.1); Sodium 133 mmol/L (135-145); eGFR > 60.00
[2025-05-25 08:39] LABS: Carbon Dioxide 24 mmol/L (22-30); Glucose 96 mg/dl (70-99)
--- NOTE | 2025-05-25 08:46 | W.PN.GS2 ---
Addendum entered and electronically signed by Bonifacio Mcmillan MD 05/25/25 14:42:
Patient seen and examined earlier this a.m. with resident. Agree with documented progress note with additions noted here.
Stable right lower quadrant discomfort/pain.
Tolerating dietary intake
Loose bowels are less frequent now
AFVSS
NAD AAO x 3
ABD: Soft, nondistended, localized tenderness in the right lower quadrant but no rebound or guarding.
IR drain in place to bulb suction with enteric contents
A/P: 80-year-old male presenting with contained perforated acute appendicitis with abscess manage by IR drainage
Has responded well with normalization of white blood cell count and improving pain
Low residue diet
Maintain IR drain
Probable DC over the next 24 hours with subsequent surgical follow-up with Dr. Mueller
ID following for antibiotic recommendations -agree with Augmentin on discharge
Original Note:
Today's Communication / Plan
-
Cautious dietary advancement to low residue diet with small portions
Continue to monitor in hospital today
On Unasyn; infectious disease following
Monitor drain output
Maintain IR drain for foreseeable future and will be discharged with it in place.
Subsequent outpatient surgical follow-up with future imaging, timing to be determined based on clinical course
Assessment / Plan
-
Patient is a 80 yo M p/w perforated appendicitis with associated abscess formation
-- Continue low residue diet advancing slowly with small portions
-- Continue IV Abx: Unasyn
-- Follow labs to observe trend of decrease WBC count
-- Continue to monitor patient to assess whether he's passing enough flatus.
-- Continue Eliquis for anticoagulation
Time Spent
Total Time Spent with Patient (in minutes): 30
Subjective Data
-
Date of Service: May 25, 2025
80 y/o M w/ PMH Afib (was on Eliquis with last dose on morning of 05/20/2025), S/P distal pancreatectomy splenectomy for a pancreatic neoplasm as well as ventral hernia repair with mesh (Noted that a large seroma was incidentally found on CT imaging
and was not known by patient), who presented with 2 days of abdominal pain found to be acute perforated appendicitis with air fluid collection in the right lower quadrant. IR placed a percutaneous drain. Patient denies any n/v/f/pain. He states that
his diarrhea has been improving becoming more semisolid in nature and less frequent. He also states that he has passed some gas. Patient admits to vomiting yesterday when trying to advance his diet to solids, so he went back to clears (ice cream).
This morning he states the he is continuing to try advancing his diet. Patient states he had some low residue solids to eat and has been feeling okay. Patient is inquiring about discharge, but also states that he wants to stay as long as necessary.
Objective Data
-
Intake and Output
05/24/25 05/25/25 05/26/25
06:59 06:59 06:59
Intake Total 130 / 130 240 / 240
Output Total 60 / 60
Balance -40 / -40 70 / 70 240 / 240
Intake:
Oral fluids 120 / 120 240 / 240
Amount instilled into Drain (
Total)
Right Lower Abdomen Placed in
IR
Output:
Drain Output (Total) 60 / 60
Sukumar-Juarez 40 / 40
Right Lower Abdomen Placed in 20 /
IR
Other:
Number of approximated SMALL 1 1
amounts of urine
Number of approximated MODERATE 4
amounts of urine
Number of unmeasured liquid
stools
Rectum 1
Vital Signs
Temp Pulse Resp BP Pulse Ox
98.8 F 98 16 140/77 96
05/25/25 07:50 05/25/25 07:50 05/25/25 07:50 05/25/25 07:50 05/25/25 07:50
Lab Results
05/25/25 07:46
05/25/25 07:46
Calcium 8.2 mg/dl (8.4-10.2) L 05/25/25 07:46
Magnesium 1.9 mg/dl (1.6-2.3) 05/23/25 03:42
Total Bilirubin 4.5 mg/dl (0.2-1.3) H 05/20/25 16:09
AST 28 U/L (17-59) 05/20/25 16:09
ALT 30 U/L (0-50) 05/20/25 16:09
Alkaline Phosphatase 59 U/L (38-126) 05/20/25 16:09
Total Protein 7.2 g/dl (6.3-8.2) 05/20/25 16:09
Albumin 4.1 g/dl (3.5-5.0) 05/20/25 16:09
AFVSS
Labs: WBC Count continuing to trend downward (10.1)
Physical Exam
-
General: NAD
AAAOx3
Chest: No labored breathing
Abdomen: Soft, protuberant, with minimal distension. No pain on palpation of the abdominal area around the drain. No rebound or guarding. Drain still producing pus (cazares/brown color) fluid. No redness, swelling or erythema around drain site.
Patient has a galindo catheter: No
Patient has a central line: No
--- NOTE | 2025-05-25 10:11 | W.PN.HOSP.TC ---
Addendum entered and electronically signed by Al Murillo MD 05/25/25 14:04:
Pts med list per pt�
Eliquis 5mg BID
Cetirizine 10mg QPM
Nexium 20mg daily
Zetia 10mg QHS
Flonase 2 sprays each nostril BID
Irbesartan 150mg QHS
Metoprolol 50mg QPM
Cialis 5mg daily at 3pm
Supplements�
Alpha lipoic acid 1200mg daily
Nerve recovery supplement 1 tab daily
2 over the counter supplements for prostate health that he can�t think of
Benadryl cream as needed
Addendum entered and electronically signed by Al Murillo MD 05/25/25 10:27:
sepsis-poa
Original Note:
Today's Communication/Plan
-
Continue with IV antibiotic
Monitor for diet tolerance
Replete potassium
Pending home med rec
Monitor AMALIA drain output
Assessment / Plan
Assessment / Plan
Impression
Acute perforated appendicitis with localized abscess
Ileitis
Strep viridans bacteremia from intra-abdominal source
Normal anion gap metabolic acidosis secondary to GI losses
Nonsustained VT
Hypokalemia
Mild hyponatremia
Other conditions
Persistent atrial fibrillation.
History of left lower extremity DVT and bilateral PE 2018, provoked by travel and prolonged immobility.
Anticoagulation with Eliquis.
Essential hypertension.
Dyslipidemia.
Valvular disease including mild AR, mild MR, mild TR.
Reactive airway disease.
GERD.
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
Pancreatic neuroendocrine tumor, status post partial pancreatectomy 2018
Asplenia
BPH
Obesity BMI 32
Remote history of tobacco abuse.
Plan:
Acute perforated appendicitis per
Presents with persistent right lower quadrant pain and fever pain and fever.
Hemodynamically stable with no evidence of sepsis
Exam with right lower quadrant tenderness but
WBC 26.
CT scan
1. ACUTE PERFORATED APPENDICITIS surrounded by severe inflammation.
2. Severe reactive wall thickening and submucosal edema in the terminal ileum.
3. Small volume ascites.
4. Moderate reactive lymphadenopathy in the right pelvis.
5. Large 13.1 cm midline anterior abdominal wall fluid collection. Diagnostic possibilities are (1) a seroma, (2) a liquefied hematoma, or (3) an abscess.
6. Severe diverticulosis in the descending and sigmoid colon.
7. Previous distal pancreatectomy and splenectomy.
8. Moderate diffuse hepatic steatosis.
9. Small hiatal hernia.
10. Moderate number of bilateral renal cysts.
11. Severely enlarged prostate gland.
12. Severe multilevel lumbar discogenic degenerative disease.
Blood culture positive for strep viridans
Status post percutaneous abscess drain by interventional radiology on 05/22
Wound cultures with polymicrobial
Antibiotics changed from cefepime and Flagyl to Unasyn on 05/22
Repeat blood cultures remains negative
Echocardiogram normal ventricular size systolic function without regional wall motion abnormality. Aortic valve sclerosis without stenosis. No vegetation identified.
Persistent diarrhea likely due to surrounding ileitis. C. difficile negative
Diet advanced.
Leukocytosis resolved
Nausea and vomiting improved. DC fluids.
Was restarted on Eliquis 05/23/2025
Surgical correspondence noted. Patient to be discharged with AMALIA drain and duration will be determined as outpatient.
Normal anion gap metabolic acidosis secondary to diarrheal stool.
Suspect also pancreatic insufficiency with prior history of partial pancreatectomy
IV fluids changed alkalinized. Acidosis resolved.
Follow BMP
Cardiovascular:
Persistent atrial fibrillation
Essential hypertension
Episode of nonsustained VT on telemetry 05/23. Asymptomatic.
Follow-up ECG A-fib with RVR at 107
Echo as above
Continue telemetry monitoring. If persistent, consider cardiology evaluation
Increase Toprol-XL to 25 mg twice daily
Hold Irbesartan to avoid hypotension
Eliquis resumed
DVT prophylaxis�Eliquis
Full code
Pending home med rec
Anticipated Discharge: 24 - 48 hours
Subjective/Interval History
-
Date of Service: May 25, 2025
No nausea or vomiting this morning
States ate eggs
Objective Data
-
Labs:
Laboratory Results
05/25/25
07:46
WBC 10.1
Hgb 11.8 L
Hct 33.8 L
Plt Count 381
Sodium 133 L
Potassium 3.4 L
Chloride 102
Carbon Dioxide 24
BUN 14
Creatinine 0.7
Glucose 96
Calcium 8.2 L
Vital Signs:
Vital Signs
Temp Pulse Resp BP Pulse Ox
98.8 F 98 16 140/77 96
05/25/25 07:50 05/25/25 07:50 05/25/25 07:50 05/25/25 07:50 05/25/25 07:50
I&O
05/24/25 05/25/25 05/26/25
06:59 06:59 06:59
Intake Total 130 / 130 240 / 240
Output Total 50 / 50 60 / 60
Balance -40 / -40 70 / 70 240 / 240
Physical Exam
-
General: Well Developed and No Apparent Distress
HEENT: Normocephalic, Atraumatic and Moist Mucous Membranes
Respiratory: Clear to Auscultation
Cardiac: Regular Rhythm and S1/S2; Negative Murmur, Rub or Gallop
GI: Soft, Nondistended, Normal Bowel Sounds, Tender and Other (Right lower quadrant percutaneous drain with purulent discharge); Negative Organomegaly
Rectal: Deferred by Provider
Musculoskeletal: No Clubbing, No Cyanosis and No Edema
Skin: Negative Rash
Neuro: Awake and Nonfocal/Grossly Intact
Psych: Calm
Data Reviewed
-
Total Time Spent with Patient (in minutes): 55
--- NOTE | 2025-05-25 10:14 | W.PN.ID1 ---
Date of Service
Date of Service: May 25, 2025
Today's Communication
-Continue Unasyn 3 g IV every 6 hours ( d5 abx)
- At time of discharge, transition to Augmentin 875mg po bid through 06/05/25.
Assessment / Plan
# Perforated appendicitis with localized abscess
# Viridans group Streptococcus bacteremia from intra-abdominal source
# fever - resolved
# leukocytosis resolved
# Reported history of penicillin allergy�rash. Tolerating Unasyn.
# History of splenectomy and partial pancreatectomy
- Repeat blood cultures neg to date
-05/22 s/p IR drainage of right lower quadrant abscess
aerobic cx: Viridans strep, Strep species, E. coli, Klebsiella. Anaerobic culture pending
-Continue Unasyn 3 g IV every 6 hours ( d5 abx)
- At time of discharge, transition to Augmentin 875mg po bid through 06/05/25.
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
Hypertension
Dyslipidemia
Atrial fibrillation
LLE DVT/PE
Restrictive lung disease
BPH
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
Left total knee replacement
Incisional hernia repair
Chief Complaint
-: Other (Perforated appendicitis)
Subjective / Review of Systems
No new complaints.
Vital Signs / Physical Exam
Vital Signs
Vital Signs
Temp Pulse Resp BP Pulse Ox
98.8 F 98 16 140/77 96
05/25/25 07:50 05/25/25 07:50 05/25/25 07:50 05/25/25 07:50 05/25/25 07:50
Physical Exam
Constitutional: No Acute Distress
Cardiovascular: Regular Rate and S1/S2
Pulmonary: Clear
Gastrointestinal: Soft, Tender (RLQ), Non Distended and Other (AMALIA drain; thin cloudy fluid)
Genito-Urinary: Negative CVA Tenderness
Extremities: Negative Edema
Neurological: AO x 3
Objective Data
Lab Data
Lab Results
05/25/25 07:46
05/25/25 07:46
Estimated Creat Clear 104 ml/min 05/25/25 07:46
Lactic Acid 1.6 mmol/L (0.7-2.0) 05/20/25 20:03
Total Bilirubin 4.5 mg/dl (0.2-1.3) H 05/20/25 16:09
AST 28 U/L (17-59) 05/20/25 16:09
ALT 30 U/L (0-50) 05/20/25 16:09
Alkaline Phosphatase 59 U/L (38-126) 05/20/25 16:09
Most recent labs reviewed.
Micro Results:
05/22/25 16:50 Anaerobic Culture - Preliminary
Abscess Culture pending. Anaerobic cultures are examined after 3
days incubation. Additional information to follow.
05/23/25 09:24 Salmonella/Shigella Culture - Final
Feces/Stool No Salmonella, Shigella, Aeromonas or Plesiomonas species
isolated.
Campylobacter Culture - Final
No Campylobacter species isolated.
Shiga Toxin Test - Final
No E. coli Shiga Toxin 1 or 2 detected.
Stool Leukocytes - Final
05/22/25 16:50 Wound Culture - Preliminary
Appendix Klebsiella pneumoniae
Escherichia coli
Streptococcus species
Viridans Streptococcus Group
Gram Stain - Preliminary
05/20/25 20:59 Blood Culture - Preliminary
Blood/Venous No Growth in 4 days- Final report to follow
05/22/25 11:48 Blood Culture - Preliminary
Blood/Venous No Growth in 48 hours- Final report to follow
05/22/25 11:09 Blood Culture - Preliminary
Blood/Venous No Growth in 48 hours- Final report to follow
05/23/25 09:24 C. difficile GDH Antigen & Toxins - Final
Feces/Stool Negative for toxigenic C.difficile
05/20/25 20:00 Blood Culture - Preliminary
Blood/Venous Viridans Streptococcus Group
Gram Stain - Preliminary
05/21/25 05:11 Urine Culture - Final
Urine NO GROWTH
05/20/25 CT a/p: ACUTE PERFORATED APPENDICITIS surrounded by severe inflammation. Severe reactive wall thickening and submucosal edema in the terminal ileum.Small volume ascites.Moderate reactive lymphadenopathy in the right pelvis. Large 13.1 cm
midline anterior abdominal wall fluid collection. Diagnostic possibilities are (1) a seroma, (2) a liquefied hematoma, or (3) an abscess.
[2025-05-25] MEDS: KCL 40 MEQ PO (10:37)
--- NOTE | 2025-05-25 12:02 | CM ---
Patient seen at bedside on . Patient states that he is planning to go home with the drain and [facility] to follow. Patient with no other concerns at this time. Patient stated he was not in any hurry to leave the hospital at this time. CM updated
Liaison for [facility]. Per Liaison patient will need flushes for the drain and only Charly carries them. Liaison to update physician and CM will continue to follow for discharge planning needs.
Plan; home with [facility] to follow; watch for home orders/flushes
[2025-05-26] VITALS (7 sets, daily range): BP systolic 126–149; BP diastolic 76–92; PULSE 101; O2SAT 98
[2025-05-26] MEDS: UNASYN IV ×3 (05:15→12:39)
[2025-05-26 06:21] LABS: Hematocrit 32.6 % (39.0-52.0); Hemoglobin 11.2 g/dL (13.0-18.0); Mean Corp Hgb Conc. 34.4 g/dL (33.0-37.0); Mean Corpuscular Volume 88.6 fL (80.0-94.0); Nucleated Red Blood Cells % 0.2 % (-); Platelet Count 417 10^3/uL (130-400); Red Cell Dist. Width 15.1 % (11.5-14.5)
[2025-05-26 06:50] LABS: Blood Urea Nitrogen 12 mg/dl (9-20); Calcium 8.2 mg/dl (8.4-10.2); Carbon Dioxide 24 mmol/L (22-30); Chloride 104 mmol/L (98-107); Estimated Creatinine Clearance 91 ml/min; Glucose 87 mg/dl (70-99); Potassium 3.7 mmol/L (3.5-5.1); Sodium 135 mmol/L (135-145); eGFR > 60.00
--- NOTE | 2025-05-26 08:04 | W.PN.ID1 ---
Date of Service
Date of Service: May 26, 2025
Today's Communication
-Continue Unasyn 3 g IV every 6 hours ( d7 abx)
- At time of discharge, transition to Augmentin 875mg po bid through 06/05/25.
Assessment / Plan
# Perforated appendicitis with localized abscess
# Viridans group Streptococcus bacteremia from intra-abdominal source
# fever - resolved
# leukocytosis resolved
# Reported history of penicillin allergy�rash. Tolerating Unasyn.
# History of splenectomy and partial pancreatectomy
- Repeat blood cultures neg to date
-7/ s/p IR drainage of right lower quadrant abscess
aerobic cx: Viridans strep, Strep species, E. coli, Klebsiella. Anaerobic culture pending
-Continue Unasyn 3 g IV every 6 hours ( d7 abx)
- At time of discharge, transition to Augmentin 875mg po bid through 06/05/25.
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
Hypertension
Dyslipidemia
Atrial fibrillation
LLE DVT/PE
Restrictive lung disease
BPH
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
Left total knee replacement
Incisional hernia repair
Chief Complaint
-: Other (Perforated appendicitis)
Subjective / Review of Systems
Pain controlled with Tylenol.
+ diarrhea
Vital Signs / Physical Exam
Vital Signs
Vital Signs
Temp Pulse Resp BP Pulse Ox
98.3 F 91 14 132/85 96
05/26/25 07:35 05/26/25 07:35 05/26/25 07:35 05/26/25 07:35 05/26/25 07:35
Physical Exam
Constitutional: No Acute Distress
Cardiovascular: Regular Rate and S1/S2
Pulmonary: Clear
Gastrointestinal: Soft, Tender (RLQ), Non Distended and Other (AMALIA drain; thin cloudy dark green fluid)
Genito-Urinary: Negative CVA Tenderness
Extremities: Negative Edema
Neurological: AO x 3
Objective Data
Lab Data
Lab Results
05/26/25 05:49
05/26/25 05:49
Estimated Creat Clear 91 ml/min 05/26/25 05:49
Lactic Acid 1.6 mmol/L (0.7-2.0) 05/20/25 20:03
Total Bilirubin 4.5 mg/dl (0.2-1.3) H 05/20/25 16:09
AST 28 U/L (17-59) 05/20/25 16:09
ALT 30 U/L (0-50) 05/20/25 16:09
Alkaline Phosphatase 59 U/L (38-126) 05/20/25 16:09
Most recent labs reviewed.
Micro Results:
05/20/25 20:59 Blood Culture - Final
Blood/Venous No Growth - Final Report
05/22/25 11:48 Blood Culture - Preliminary
Blood/Venous No Growth in 72 hours- Final report to follow
05/22/25 11:09 Blood Culture - Preliminary
Blood/Venous No Growth in 72 hours- Final report to follow
05/22/25 16:50 Anaerobic Culture - Preliminary
Abscess Culture pending. Anaerobic cultures are examined after 3
days incubation. Additional information to follow.
05/23/25 09:24 Salmonella/Shigella Culture - Final
Feces/Stool No Salmonella, Shigella, Aeromonas or Plesiomonas species
isolated.
Campylobacter Culture - Final
No Campylobacter species isolated.
Shiga Toxin Test - Final
No E. coli Shiga Toxin 1 or 2 detected.
Stool Leukocytes - Final
05/22/25 16:50 Wound Culture - Preliminary
Appendix Klebsiella pneumoniae
Escherichia coli
Streptococcus species
Viridans Streptococcus Group
Gram Stain - Preliminary
05/23/25 09:24 C. difficile GDH Antigen & Toxins - Final
Feces/Stool Negative for toxigenic C.difficile
05/20/25 20:00 Blood Culture - Preliminary
Blood/Venous Viridans Streptococcus Group
Gram Stain - Preliminary
05/21/25 05:11 Urine Culture - Final
Urine NO GROWTH
05/20/25 CT a/p: ACUTE PERFORATED APPENDICITIS surrounded by severe inflammation. Severe reactive wall thickening and submucosal edema in the terminal ileum.Small volume ascites.Moderate reactive lymphadenopathy in the right pelvis. Large 13.1 cm
midline anterior abdominal wall fluid collection. Diagnostic possibilities are (1) a seroma, (2) a liquefied hematoma, or (3) an abscess.
--- NOTE | 2025-05-26 08:18 | W.PN.HOSP.TC ---
Today's Communication/Plan
-
He is ready for discharge
Pt is concerned about diarrhea, trial of Imodium for now
Also Tachycardia upon exertion per nursing staff, will increase dose of BB, at 50 mg for PM dose
Assessment / Plan
Assessment / Plan
Physical Exam
-
General: Well Developed and No Apparent Distress
HEENT: Normocephalic, Atraumatic and Moist Mucous Membranes
Respiratory: Clear to Auscultation
Cardiac: `S1 S2, A fib/ tachycardia
GI: Soft, Nondistended, Normal Bowel Sounds, not Tender and Other (Right lower quadrant percutaneous drain with purulent discharge);
Rectal: no bleeding
Musculoskeletal: No Clubbing, No Cyanosis and No Edema
Skin: Negative Rash
Neuro: Awake and Nonfocal/Grossly Intact
Psych: Calm
Impression
Acute perforated appendicitis with localized abscess
Ileitis
Strep viridans bacteremia from intra-abdominal source
sepsis was ruled out
Normal anion gap metabolic acidosis secondary to GI losses
Nonsustained VT
Hypokalemia
Mild hyponatremia
Other conditions
Persistent atrial fibrillation.
History of left lower extremity DVT and bilateral PE 2018, provoked by travel and prolonged immobility.
Anticoagulation with Eliquis.
Essential hypertension.
Dyslipidemia.
Valvular disease including mild AR, mild MR, mild TR.
Reactive airway disease.
GERD.
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
Pancreatic neuroendocrine tumor, status post partial pancreatectomy 2018
Asplenia
BPH
Obesity BMI 32
Remote history of tobacco abuse.
Plan:
Acute perforated appendicitis per
Presents with persistent right lower quadrant pain and fever pain and fever.
Hemodynamically stable with no evidence of sepsis
Exam with right lower quadrant tenderness, improved now t
WBC 26.
CT scan
1. ACUTE PERFORATED APPENDICITIS surrounded by severe inflammation.
2. Severe reactive wall thickening and submucosal edema in the terminal ileum.
3. Small volume ascites.
4. Moderate reactive lymphadenopathy in the right pelvis.
5. Large 13.1 cm midline anterior abdominal wall fluid collection. Diagnostic possibilities are (1) a seroma, (2) a liquefied hematoma, or (3) an abscess.
6. Severe diverticulosis in the descending and sigmoid colon.
7. Previous distal pancreatectomy and splenectomy.
8. Moderate diffuse hepatic steatosis.
9. Small hiatal hernia.
10. Moderate number of bilateral renal cysts.
11. Severely enlarged prostate gland.
12. Severe multilevel lumbar discogenic degenerative disease.
Blood culture positive for strep viridans
Status post percutaneous abscess drain by interventional radiology on 05/22
Wound cultures with polymicrobial
Antibiotics changed from cefepime and Flagyl to Unasyn on 05/22.Per ID: At time of discharge, transition to Augmentin 875mg po bid through 06/05/25.
Repeat blood cultures remains negative
Echocardiogram normal ventricular size systolic function without regional wall motion abnormality. Aortic valve sclerosis without stenosis. No vegetation identified.
Persistent diarrhea likely due to surrounding ileitis. C. difficile negative
Diet advanced.
Leukocytosis resolved
Nausea and vomiting improved. DC fluids.
Was restarted on Eliquis 05/23/2025
Surgical correspondence noted. Patient to be discharged with AMALIA drain and duration will be determined as outpatient.
Normal anion gap metabolic acidosis secondary to diarrheal stool.
Suspect also pancreatic insufficiency with prior history of partial pancreatectomy
IV fluids changed alkalinized. Acidosis resolved.
Follow BMP
Give Imodium, negative C Diff
Cardiovascular:
Persistent atrial fibrillation, uncontrolled rate upon ambulation, increased BB
Essential hypertension
Episode of nonsustained VT on telemetry 05/23. Asymptomatic.
Follow-up ECG A-fib with RVR at 107
Echo as above
Continue telemetry monitoring. If persistent, consider cardiology evaluation
Increase Toprol-XL to 25 mg twice daily
Held Irbesartan to avoid hypotension
Eliquis resumed
DVT prophylaxis�Eliquis
Full code
Total time spent to see the patient, examine the patient, review data and lab result, discuss treatment plan with patient, nursing staff around 55 minutes
Anticipated Discharge: Within 24 hours
Subjective/Interval History
-
Date of Service: May 26, 2025
He complains of diarrhea ( loose stools every 2-3 hours). No abdominal pain or fever/ chills
No chest pain
Nurse: tachycardia upon walking
Objective Data
-
Labs:
Laboratory Results
05/26/25
05:49
WBC 10.8
Hgb 11.2 L
Hct 32.6 L
Plt Count 417 H
Sodium 135
Potassium 3.7
Chloride 104
Carbon Dioxide 24
BUN 12
Creatinine 0.8
Glucose 87
Calcium 8.2 L
Vital Signs:
Vital Signs
Temp Pulse Resp BP Pulse Ox
98.3 F 91 14 132/85 96
05/26/25 07:35 05/26/25 07:35 05/26/25 07:35 05/26/25 07:35 05/26/25 07:35
I&O
05/25/25 05/26/25 05/27/25
06:59 06:59 06:59
Intake Total 130 / 130 730 / 730 720 / 720
Output Total 60 / 60 20 / 20 20 / 20
Balance 70 / 70 710 / 710 700 / 700
[2025-05-26] MEDS: IMODIUM 2 MG PO (09:11)
[2025-05-26] MEDS: TOPROL XL 25 MG PO (09:11)
[2025-05-26] MEDS: VISBIOME 1 CAP PO (09:12)
[2025-05-26] MEDS: PROTONIX IV 40 MG IV (09:12)
[2025-05-26] MEDS: NSS (PRESERVATIVE FREE) 10 ML IV (09:12)
[2025-05-26] MEDS: ELIQUIS 5 MG PO ×2 (09:12→20:30)
[2025-05-26] MEDS: TYLENOL 650 MG PO ×2 (09:22→20:35)
--- NOTE | 2025-05-26 12:09 | W.PN.GS2 ---
Today's Communication / Plan
-
[facility]
Dispo planning
Assessment / Plan
-
Patient is a 80 yo M p/w perforated appendicitis with associated abscess formation s/p IR drainage in management
AFVSS
No leukocytosis
Tolerating diet, still with reactive diarrhea. Stool cx neg and c-diff also neg
Plan:
Continue LRD
Continue drain with daily flush (will remain in place upon d/c)
ID following for antibiotic recommendations -agree with Augmentin on discharge
[facility]NA arrangements being made by CM, will need close OP surgical follow up
d/c when medically ready, would ideally see diarrhea improve prior to discharge
Subjective Data
-
Date of Service: May 26, 2025
Pt seen and examined at bedside with Dr. Soria. Denies n/v. Tolerating diet. Passing a lot of diarrhea still, notes Imodium has helped. Denies pain.
Objective Data
-
Intake and Output
05/25/25 05/26/25 05/27/25
06:59 06:59 06:59
Intake Total 130 / 130 730 / 730 1200 / 1200
Output Total 60 / 60 /
Balance 70 / 70 710 / 710 1180 / 1180
Intake:
Oral fluids 120 / 120 720 / 720 720 / 720
IV piggybacks 480 / 480
Amount instilled into Drain (
Total)
Sukumar-Juarez
Right Lower Abdomen Placed in
IR
Output:
Drain Output (Total) 60 / 60 20 / 20 20 / 20
Sukumar-Juarez 40 / 40 / 20
Right Lower Abdomen Placed in
IR
Other:
Number of approximated SMALL 1
amounts of urine
Number of approximated MODERATE 4 2
amounts of urine
Number of unmeasured liquid
stools
Rectum 1
Vital Signs
Temp Pulse Resp BP Pulse Ox
98.6 F 101 18 126/81 98
05/26/25 11:17 05/26/25 11:17 05/26/25 11:17 05/26/25 11:17 05/26/25 11:17
Lab Results
05/26/25 05:49
05/26/25 05:49
Calcium 8.2 mg/dl (8.4-10.2) L 05/26/25 05:49
Magnesium 1.9 mg/dl (1.6-2.3) 05/23/25 03:42
Total Bilirubin 4.5 mg/dl (0.2-1.3) H 05/20/25 16:09
AST 28 U/L (17-59) 05/20/25 16:09
ALT 30 U/L (0-50) 05/20/25 16:09
Alkaline Phosphatase 59 U/L (38-126) 05/20/25 16:09
Total Protein 7.2 g/dl (6.3-8.2) 05/20/25 16:09
Albumin 4.1 g/dl (3.5-5.0) 05/20/25 16:09
Physical Exam
-
General: NAD
AAAOx3
Chest: No labored breathing
Abdomen: Soft, protuberant, ND, NT, Drain still producing pus (cazares/brown color) fluid. Drain with green bile tinged purulent output
Patient has a galindo catheter: No
Patient has a central line: No
[2025-05-26] MEDS: TOPROL XL 50 MG PO (20:31)
[2025-05-26] MEDS: AUGMENTIN 875 MG/125 MG 1 TABLET PO (20:31)
[2025-05-27 03:00] VITALS: BP 146/96
[2025-05-27 07:25] VITALS: BP 133/88
[2025-05-27] MEDS: VISBIOME 1 CAP PO (07:44)
[2025-05-27] MEDS: AUGMENTIN 875 MG/125 MG 1 TABLET PO (07:45)
[2025-05-27] MEDS: TOPROL XL 50 MG PO (07:45)
[2025-05-27] MEDS: ELIQUIS 5 MG PO (07:45)
[2025-05-27] MEDS: PROTONIX IV 40 MG IV (07:46)
[2025-05-27] MEDS: NSS (PRESERVATIVE FREE) 10 ML IV (07:46)
[2025-05-27] MEDS: IMODIUM 2 MG PO (07:54)
--- NOTE | 2025-05-27 08:27 | W.PN.HOSP.TC ---
Today's Communication/Plan
-
Patient wants to go home today
Assessment / Plan
Assessment / Plan
Physical Exam
-
General: Well Developed and No Apparent Distress
HEENT: Normocephalic, Atraumatic and Moist Mucous Membranes
Respiratory: Clear to Auscultation
Cardiac: `S1 S2, A fib/ tachycardia
GI: Soft, Nondistended, Normal Bowel Sounds, not Tender and drain lower side, no bleeding or tenderness or erythema around it.
Rectal: no bleeding
Musculoskeletal: No Clubbing, No Cyanosis and No Edema
Skin: Negative Rash
Neuro: Awake and Nonfocal/Grossly Intact
Psych: Calm
Impression
Acute perforated appendicitis with localized abscess
Ileitis
Strep viridans bacteremia from intra-abdominal source
sepsis was ruled out
Normal anion gap metabolic acidosis secondary to GI losses
Nonsustained VT
Hypokalemia
Mild hyponatremia
Other conditions
Persistent atrial fibrillation.
History of left lower extremity DVT and bilateral PE 2018, provoked by travel and prolonged immobility.
Anticoagulation with Eliquis.
Essential hypertension.
Dyslipidemia.
Valvular disease including mild AR, mild MR, mild TR.
Reactive airway disease.
GERD.
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
Pancreatic neuroendocrine tumor, status post partial pancreatectomy 2018
Asplenia
BPH
Obesity BMI 32
Remote history of tobacco abuse.
Plan:
Acute perforated appendicitis per
Presents with persistent right lower quadrant pain and fever pain and fever.
Hemodynamically stable with no evidence of sepsis
Exam with right lower quadrant tenderness, improved now t
WBC 26.
CT scan
1. ACUTE PERFORATED APPENDICITIS surrounded by severe inflammation.
2. Severe reactive wall thickening and submucosal edema in the terminal ileum.
3. Small volume ascites.
4. Moderate reactive lymphadenopathy in the right pelvis.
5. Large 13.1 cm midline anterior abdominal wall fluid collection. Diagnostic possibilities are (1) a seroma, (2) a liquefied hematoma, or (3) an abscess.
6. Severe diverticulosis in the descending and sigmoid colon.
7. Previous distal pancreatectomy and splenectomy.
8. Moderate diffuse hepatic steatosis.
9. Small hiatal hernia.
10. Moderate number of bilateral renal cysts.
11. Severely enlarged prostate gland.
12. Severe multilevel lumbar discogenic degenerative disease.
Blood culture positive for strep viridans
Status post percutaneous abscess drain by interventional radiology on 05/22
Wound cultures with polymicrobial
Antibiotics changed from cefepime and Flagyl to Unasyn on 05/22.Per ID: At time of discharge, transition to Augmentin 875mg po bid through 06/05/25.
Repeat blood cultures remains negative
Echocardiogram normal ventricular size systolic function without regional wall motion abnormality. Aortic valve sclerosis without stenosis. No vegetation identified.
Persistent diarrhea likely due to surrounding ileitis. C. difficile negative, diarrhea is less after Imodium and changing Ab to oral.
Diet advanced.
Leukocytosis resolved
Nausea and vomiting improved. DC fluids.
Was restarted on Eliquis 05/23/2025
Surgical correspondence noted. Patient to be discharged with AMALIA drain and duration will be determined as outpatient.
Normal anion gap metabolic acidosis secondary to diarrheal stool.
Suspect also pancreatic insufficiency with prior history of partial pancreatectomy
IV fluids changed alkalinized. Acidosis resolved.
Follow BMP
Give Imodium, negative C Diff
Cardiovascular:
Persistent atrial fibrillation, uncontrolled rate upon ambulation, increased BB
Essential hypertension
Episode of nonsustained VT on telemetry 05/23. Asymptomatic.
Follow-up ECG A-fib with RVR at 107
Echo as above
Continue telemetry monitoring. If persistent, consider cardiology evaluation
Increase Toprol-XL to 25 mg twice daily
Held Irbesartan to avoid hypotension
Eliquis resumed
DVT prophylaxis�Eliquis
Full code
Total discharge time spent to see the patient, examine the patient, review data and lab result, discuss discharge plan with patient, nursing staff around 67 minutes
Anticipated Discharge: Today
Subjective/Interval History
-
Date of Service: May 27, 2025
He feels better and wants to go home
Objective Data
-
Vital Signs:
Vital Signs
Temp Pulse Resp BP Pulse Ox
98.4 F 91 18 133/88 96
05/27/25 07:25 05/27/25 07:45 05/27/25 07:25 05/27/25 07:45 05/27/25 07:25
I&O
05/26/25 05/27/25 05/28/25
06:59 06:59 06:59
Intake Total 730 / 730 2210 / 2210 480 / 480
Output Total 55 / 55
Balance 710 / 710 2155 / 2155 480 / 480
--- NOTE | 2025-05-27 10:07 | W.PN.GS2 ---
Today's Communication / Plan
-
Dispo planning
Assessment / Plan
-
Patient is a 80 yo M p/w perforated appendicitis with associated abscess formation s/p IR drainage in management
AFVSS
No leukocytosis
Tolerating diet, diarrhea improved
Plan:
Continue LRD
Continue drain with daily flush (will remain in place upon d/c)
ID following for antibiotic recommendations -agree with Augmentin on discharge
[facility]NA arrangements being made by CM, will need close OP surgical follow up
Ok for d/c from surgical standpoint
Subjective Data
-
Date of Service: May 27, 2025
Pt seen and examined at bedside with Dr. Soria. No further diarrhea. Abdominal pain continues to improve/nearly resolved. OOB ambulating. Tolerating diet.
Objective Data
-
Intake and Output
05/26/25 05/27/25 05/28/25
06:59 06:59 06:59
Intake Total 730 / 730 2210 / 2210 480 / 480
Output Total
Balance 710 / 710 2155 / 2155 480 / 480
Intake:
Oral fluids 720 / 720 1600 / 1600 480 / 480
IV piggybacks 600 / 600
Amount instilled into Drain (
Total)
Sukumar-Juarez
Right Lower Abdomen Placed in
IR
Output:
Drain Output (Total)
Sukumar-Juarez
Other:
Number of approximated MODERATE 4
amounts of urine
Number of unmeasured liquid
stools
Rectum 1
Vital Signs
Temp Pulse Resp BP Pulse Ox
98.4 F 91 18 133/88 96
05/27/25 07:25 05/27/25 07:45 05/27/25 07:25 05/27/25 07:45 05/27/25 07:25
Lab Results
05/26/25 05:49
05/26/25 05:49
Calcium 8.2 mg/dl (8.4-10.2) L 05/26/25 05:49
Magnesium 1.9 mg/dl (1.6-2.3) 05/23/25 03:42
Total Bilirubin 4.5 mg/dl (0.2-1.3) H 05/20/25 16:09
AST 28 U/L (17-59) 05/20/25 16:09
ALT 30 U/L (0-50) 05/20/25 16:09
Alkaline Phosphatase 59 U/L (38-126) 05/20/25 16:09
Total Protein 7.2 g/dl (6.3-8.2) 05/20/25 16:09
Albumin 4.1 g/dl (3.5-5.0) 05/20/25 16:09
Physical Exam
-
General: NAD
AAAOx3
Chest: No labored breathing
Abdomen: Soft, protuberant, ND, NT, Drain with purulent output
Patient has a galindo catheter: No
Patient has a central line: No
[2025-05-27] MEDS: TYLENOL 650 MG PO (10:53)
--- NOTE | 2025-05-27 12:18 | PTCARENOTE ---
Patient and his daughter were both taught how to properly care for AMALIA drain. Supplies were given to support care till visiting nurses become available to patient. All questions and concerns were answered. RN discussed all signs and symptoms of
infection/issues to report to health care provider.
--- NOTE | 2025-05-27 12:30 | W.DCSUMMARY ---
Discharge Summary
Discharge Data
Date of Admission: 05/20/25
Date of Discharge: 05/27/25
-
Pending Results: No
Hospital Course
80 years old male presented to the hospital with abdominal pain. Patient had scan of the abdomen and pelvis that showed acute perforated appendicitis with a collection in the right lower quadrant with air-fluid levels. Patient was admitted to the
hospital. He received intravenous antibiotic. Eliquis was held for possible surgery. Patient was evaluated by surgery. Recommended interventional radiology consult for percutaneous drainage of the right lower quadrant abscess and to continue
antibiotics. Patient's vital signs and blood work were monitored. His symptoms started to improve and was started on trial of clear liquids. Patient was evaluated by infectious diseases unix consultant. Leukocytosis improved. Patient had reported
penicillin allergy. He was given intravenous Unasyn with good response and no reaction. Blood culture came positive for Viridans group Streptococcus bacteremia. Repeat blood culture showed no growth. Wound culture showed multiple microbes. Diet
was advanced with good tolerance. Patient had diarrhea. C. difficile test was negative. Patient was placed back on Eliquis. Patient remained hemodynamically stable and tolerated diet. No fever. Patient was evaluated by physical therapy
recommended home health services. physical plant manager was involved in discharge planning. Surgery recommended outpatient follow-up. Patient was discharged home in a stable condition with home health services.
Discharge Plan
-
Patient Disposition: Home with Home Care
Discharge Diagnosis/Procedures: Perforated appendicitis with drainage of abscess
Condition: Good
Diet: As tolerated
Activity: No strenuous activity
Additional Activity: avoid dislodging your drain, if it becomes dislodged call your surgeon to arrange for additional imaging or replacement
Bathing Restrictions: OK to Shower
Wound Care: Flush your drain daily with 10ml of sterile saline. See handout for further drain care instructions
Instructions: How to care for a closed suction drain
Referrals:
Chong Mueller MD [Active, Surgical] - in one to two weeks
UNKNOWN - PT DOES,NOT KNOW [Family Provider]
Christine Barrera MD [Active, Infectious Diseases]
Referral Note: Call as needed
Prescriptions:
New
sodium chloride 0.9 % (flush) [Normal Saline Flush] Syringe
10 ml IV DAILY Qty: 300 0RF
Rx Instructions:
forward flush drain daily (towards the body)
amoxicillin-pot clavulanate 875-125 mg Tablet
1 tab PO Q12 Qty: 20 0RF
Rx Instructions:
Patient tolerated this medicine in the hospital
Continued
cetirizine 10 MG tablet
10 mg PO DAILY PRN (Reason: allergies)
Benadryl Itch Stopping 28.3 GM cream
28.3 gm TP BID PRN (Reason: itching)
Patient Comments:
07/27/19 1430 BK. APPLY TO RIGHT ARM RASH
irbesartan 150 MG tablet
150 mg PO HS
esomeprazole magnesium [Nexium 24HR] 20 MG capsule,delayed release(DR/EC)
20 mg PO DAILY
metoprolol succinate 25 mg tablet extended release 24 hr
25 mg PO QPM
fluticasone propionate [Flonase Allergy Relief] 50 mcg/actuation [place],Suspension
2 spray INTRANASAL BID
ezetimibe [Zetia] 10 mg Tablet
10 mg PO HS
tadalafil [Cialis] 5 mg Tablet
5 mg PO DAILY@1500
Eliquis 5 mg tablet
5 mg PO BID
alpha lipoic acid 600 mg Tablet
600 mg PO DAILY
Nerve Recovery
1 cap PO DAILY
Beta-Sitosterol
120 mg PO 1XD
saw palmetto
PO 1XD
Discharge Orders:
Discharge Patient (As Directed); Ordered 05/27/25
Ordered By: Amber Mulligan
Discharge Date and Time
Print Language: BURUNDIAN
[2025-05-27 12:32] VITALS: BP 132/87
--- NOTE | 2025-05-27 12:32 | CM ---
Pt for dc today to home with his daughter.
[facility] to follow and were notified of dc.
Flushes are to be sent to [facility] and the rest to his home pharmacy; message sent to MD and RN.
IMM issued and signed.
--- NOTE | 2025-05-31 14:54 | W.PN.UPDATE ---
Update Note
Progress Note Update
80 yo male with RLQ abscess drain that was placed on 05/22/25. VN called stating that there was some erythema around the site with some ?purulent drainage. He does report he took a shower yesterday and today without covering the site. He denies
fever or chills. He denies pain at the site. On exam there is some normal granuation tissue with mild erythema. No induration or concern for cellulitis or abscess. No need for antibiotics. New dressing applied. D/C instructions again given
and reviewed with pt. Advised to call back with any new questions or concerns.
== END 2025-05-27 12:50 | disposition home health service (06) | DRG 871 ==
LOC: 2 SOUTH 21:58
PROVIDERS: Hospitalist; Internal Medicine; Nurse Practitioner Family; Physician Assistant; Radiology Vascular & Interventional Radiology; Registered Nurse; ADMITTING PHYSICIAN Internal Medicine; ATTENDING PHYSICIAN Internal Medicine; CONSULT PHYSICIAN Internal Medicine Infectious Disease; EMERGENCY PHYSICIAN Emergency Medicine; OTHER PHYSICIAN Surgery
PROC: 0J9C30Z Drainage of Pelvic Region Subcutaneous Tissue and Fascia with Drainage Device, Percutaneous Approach (ICD-10-PCS; 2025-05-22)
DX: A40.8 Other streptococcal sepsis (principal); K35.33 Acute appendicitis with perforation, localized peritonitis, and gangrene, with abscess; C83.30 Diffuse large B-cell lymphoma, unspecified site; I48.19 Other persistent atrial fibrillation; E87.20 Acidosis, unspecified; E87.1 Hypo-osmolality and hyponatremia; I47.29 Other ventricular tachycardia; I10 Essential (primary) hypertension; E78.00 Pure hypercholesterolemia, unspecified; M19.90 Unspecified osteoarthritis, unspecified site; K86.89 Other specified diseases of pancreas; I25.10 Atherosclerotic heart disease of native coronary artery without angina pectoris; E66.9 Obesity, unspecified; K57.30 Diverticulosis of large intestine without perforation or abscess without bleeding; N40.0 Benign prostatic hyperplasia without lower urinary tract symptoms; E87.6 Hypokalemia; J98.4 Other disorders of lung; K59.00 Constipation, unspecified; K21.9 Gastro-esophageal reflux disease without esophagitis; B96.20 Unspecified Escherichia coli [E. coli] as the cause of diseases classified elsewhere; B96.1 Klebsiella pneumoniae [K. pneumoniae] as the cause of diseases classified elsewhere; B95.4 Other streptococcus as the cause of diseases classified elsewhere; Z96.652 Presence of left artificial knee joint; Z87.19 Personal history of other diseases of the digestive system; Z92.21 Personal history of antineoplastic chemotherapy; Z86.718 Personal history of other venous thrombosis and embolism; Z79.01 Long term (current) use of anticoagulants; Z82.49 Family history of ischemic heart disease and other diseases of the circulatory system; Z86.711 Personal history of pulmonary embolism; Z92.3 Personal history of irradiation; Z68.35 Body mass index [BMI] 35.0-35.9, adult; Z87.891 Personal history of nicotine dependence; Z90.81 Acquired absence of spleen; Z90.411 Acquired partial absence of pancreas; Z88.1 Allergy status to other antibiotic agents; Z88.0 Allergy status to penicillin
CPT/HCPCS: 49406; 74177; 80048; 80053; 81003; 81015; 83605; 83735; 84484; 85025; 85027; 87040; 87045; 87046; 87070; 87075; 87077; 87086; 87147; 87154; 87186; 87205; 87324; 87427; 87449; 89055; 93005; 93306; 96361; 96374; 96375; 97116; 97162; 97165; 99152; 99291; Q9967

== ENCOUNTER → 2025-06-05 10:50 | Outpatient (REF) | payer MEDICARE, OTHER, SELFPAY ==
[2025-06-05 11:11] VITALS: BP 130/76; BP_SYST 97
[2025-06-05 11:40] VITALS: BP 118/72; BP_SYST 74
[2025-06-05 11:50] VITALS: BP 118/72
== END ==
LOC: RADI 10:50
PROVIDERS: ATTENDING PHYSICIAN Surgery; FAMILY PHYSICIAN Family Medicine
DX: Z46.82 Encounter for fitting and adjustment of non-vascular catheter (principal); K65.1 Peritoneal abscess
CPT/HCPCS: 49424; 76080

== ENCOUNTER → 2025-06-07 10:09 | Outpatient (REF) | payer MEDICARE, OTHER, SELFPAY ==
--- NOTE | 2025-06-07 10:34 | PTCARENOTE ---
patient sent to [facility] for drain check. per patient, visiting nurse could not unscrew bag from tube. Per VALERIA Haines, patient is allowed to place prepared foods associate when out and about per surgeon. Alyssa Sutton unscrewed bag from tube and placed new bag. patient
given prepared foods associate.
== END ==
LOC: RADI 10:09
PROVIDERS: ATTENDING PHYSICIAN Radiology Diagnostic Radiology
DX: Z46.82 Encounter for fitting and adjustment of non-vascular catheter (principal); K65.1 Peritoneal abscess

== ENCOUNTER → 2025-06-19 10:57 | Outpatient (REF) | payer MEDICARE, OTHER, SELFPAY | LOC: RAD 10:57 | PROVIDERS: ATTENDING PHYSICIAN Surgery; FAMILY PHYSICIAN Family Medicine | DX: K35.32 Acute appendicitis with perforation, localized peritonitis, and gangrene, without abscess (principal) | CPT/HCPCS: 74177; Q9967 ==

== ENCOUNTER → 2025-07-12 12:19 | Outpatient (REF) | payer MEDICARE, OTHER, SELFPAY | LOC: RADI 12:19 | PROVIDERS: ATTENDING PHYSICIAN Surgery; FAMILY PHYSICIAN Family Medicine | DX: Z46.82 Encounter for fitting and adjustment of non-vascular catheter (principal); K35.33 Acute appendicitis with perforation, localized peritonitis, and gangrene, with abscess | CPT/HCPCS: 49424; 76080 ==

== ENCOUNTER → 2025-07-13 13:05 | Outpatient (REF) | payer MEDICARE, OTHER, SELFPAY ==
--- NOTE | 2025-07-13 15:16 | PTCARENOTE ---
[facility] note: patient was seen in [facility] for drain check on 07/12/25. Patient called and c/o drain being locked and not draining in the bag. he can't open the lock. asked patient to stop by so we can take a look. pt arrived to [facility]. checked catheter and
drain bag. both intact. no stopcock attached to catheter. explained patient that fistula can drain internally and he may not see anything draining in the bag. patient discharged home.
== END ==
LOC: RADI 13:05
PROVIDERS: ATTENDING PHYSICIAN Radiology Vascular & Interventional Radiology; FAMILY PHYSICIAN Family Medicine
DX: Z46.82 Encounter for fitting and adjustment of non-vascular catheter (principal)

== ENCOUNTER → 2025-07-17 13:45 | Outpatient (REF) | payer MEDICARE, OTHER, SELFPAY ==
--- NOTE | 2025-07-17 13:57 | PTCARENOTE ---
Pt. arrived at 1350, unable to unscrew drainage bag from drainage catheter. Hemostats had to be used to loosen bag by this RN. Pt. was going to cap tube, but said it started draining today, so bag left on per patient's request..
== END ==
LOC: RADI 13:45
PROVIDERS: ATTENDING PHYSICIAN Radiology Vascular & Interventional Radiology; FAMILY PHYSICIAN Family Medicine
DX: Z46.82 Encounter for fitting and adjustment of non-vascular catheter (principal)

== ENCOUNTER → 2025-08-06 11:07 | Outpatient (REF) | payer MEDICARE, OTHER, SELFPAY ==
--- NOTE | 2025-08-06 11:19 | W.PN.UPDATE ---
Update Note
Progress Note Update
80 yo male with RLQ abscess drain in place. He rports bleeding from around the catheter yesterday but not today. He comes in for site check. He denies fever, chills or worsening pain.
PE: RLQ drain in place. the is a small amount of dried blood noted within a scab along the lateral side of the drainage catheter. There is no drainage around the catheter. No bleeding on exam
A/P: 80 yo male with RLQ abscess drain
No active bleeding. Believe the blood was from a scab that was falling of. No signs of bleeding now
== END ==
LOC: RADI 11:07
PROVIDERS: ATTENDING PHYSICIAN Radiology Diagnostic Radiology
DX: Z46.82 Encounter for fitting and adjustment of non-vascular catheter (principal); K65.1 Peritoneal abscess

== ENCOUNTER 2025-09-04 12:46 | Inpatient (IN) | payer MEDICARE, OTHER, SELFPAY ==
[2025-08-21 11:36] LABS: Hematocrit 43.2 % (39.0-52.0); Hemoglobin 14.3 g/dL (13.0-18.0); Mean Corp Hgb Conc. 33.1 g/dL (33.0-37.0); Mean Corpuscular Volume 88.7 fL (80.0-94.0); Platelet Count 322 10^3/uL (130-400); Red Cell Dist. Width 14.2 % (11.5-14.5)
[2025-08-21 11:52] LABS: Blood Urea Nitrogen 17 mg/dl (9-20); Calcium 9.7 mg/dl (8.4-10.2); Carbon Dioxide 28 mmol/L (22-30); Chloride 103 mmol/L (98-107); Glucose 91 mg/dl (70-99); Potassium 4.8 mmol/L (3.5-5.1); Sodium 138 mmol/L (135-145); eGFR > 60.00
[2025-08-21 14:04] VITALS: BMI 34.0
[2025-09-04] VITALS (13 sets, daily range): BP systolic 50–134; BP diastolic 52–88; BMI 34.0; BMI 33.9
[2025-09-04] MEDS: TYLENOL 1000 MG PO (13:08)
[2025-09-04] MEDS: NORMOSOL-R/PLASMALYTE-A 1000 IV (13:09)
--- NOTE | 2025-09-04 14:16 | W.SUR.PREOP ---
Pre-Operative Surgical Note
-
I have examined this patient prior to the performance of the scheduled procedure.
The patient's condition is unchanged from the time of the current History and
Physical and the patient is able to undergo the scheduled procedure.
--- NOTE | 2025-09-04 14:16 | HP.FOC2 ---
Focused History & Physical
Chief Complaint
HPI:
Chief Complaint: Perforated appendicitis
HPI / Indication for Planned Procedure: This is an 80-year-old male with a history of perforated appendicitis managed with a percutaneous drain with development of an underlying fistula.
Relevant Past Medical History: Other (Atrial fibrillation)
Relevant Social History: Negative
Relevant Family History: Negative
Relevant Past Surgical History: Positive for (Ventral hernia repair with mesh)
Review of Systems
Review of Pertinent Systems: All Systems Negative
Medication
See Medication form for detailed medications: Yes
Medication List (including Herbals & OTC):
cetirizine 10 mg tablet 10 mg PO HS 09/04/12
esomeprazole magnesium 20 mg capsule,delayed release (Nexium 24HR) 20 mg PO NOON GERD 07/27/19
irbesartan 150 mg tablet 150 mg PO HS Blood Pressure 07/27/19
apixaban 5 mg tablet (Eliquis) 5 mg PO BID Blood Clot Prevention/Tx 10/20/24
ezetimibe 10 mg tablet (Zetia) 10 mg PO HS High Cholesterol 10/20/24
fluticasone propionate 50 mcg/actuation nasal spray,suspension (Flonase Allergy Relief) 2 spray intranasal BID Congestion 10/20/24
metoprolol succinate 25 mg tablet,extended release 24 hr 25 mg PO BID Blood Pressure 10/20/24
alpha lipoic acid 600 mg capsule 600 mg PO BID 08/28/25
sodium sul 1.479 gram-potas ch 0.188 gram-magnes sul 0.225 gram tablet (Sutab) 0 tab PO PER PKG DIR 08/28/25
tamsulosin 0.4 mg capsule (Flomax) 0.4 mg PO HS 08/28/25
Medications Reviewed: Yes
Allergies and Reactions
Patient has Allergies: Yes
Noted Allergies and Reactions:
Allergy/AdvReac Type Severity Reaction Status Date / Time
clindamycin AdvReac Thrush Verified 09/04/25 12:50
Pertinent Physical Exam
All Other Systems: Negative
Head/Neck: Normal
Diagnosis / Assessment
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
Plan / Procedure
He presents today for definitive management of his fistula, partial cecectomy, possible partial colectomy and possible on table colonoscopy.
Anesthesia/Sedation to be done by Anesthesia Provider: Yes
--- NOTE | 2025-09-04 17:12 | W.IMMPOSTOP ---
Surgical Immed Post Op Note
-
Primary Surgeon: Chong Mueller MD
Assisting Surgeon: PEE Gomez
Pre-op Diagnosis: Perforated appendicitis, enterocutaneous fistula
Post-op Diagnosis: Same
Procedure Performed:
1. Laparoscopic interval appendectomy
2. Laparoscopic takedown of an enterocutaneous fistula
3. Colonoscopy with polypectomy
Anesthesia Type: General
Specimen / Cultures:
1. Appendix
2. Cecal polyp
Estimated Blood Loss: 7 cc
Complications: None
Operative Findings: Left subcostal Veress entry which required a single pass followed by a right upper quadrant Optiview entry, ?potentially through mesh. 2 additional 5 mm ports were placed in the suprapubic and left lower quadrant areas all to
avoid his large midline postoperative seroma/mesh from his previous hernia repair. We began by triangulating to the right lower quadrant. The fold of Treves was identified and the bowel was run retrograde. There was a adhesion overlying the small
bowel which was lysed and removed. There was some dense midline adhesions from the omentum to the anterior abdominal wall which were left in place. The colon was plastered to the right lower quadrant abdominal wall this was carefully taken down
with sharp dissection revealing the drain which was removed as well as the appendiceal stump and fistula to the colon. There was not a significant abscess cavity. The remnant appendix was also identified and was carefully dissected off the
surrounding tissues. The mesentery was taken with the LigaSure device. The small bowel was also fairly densely adherent in this area so I elected to do a colonoscopy to better delineate the anatomy. His colon prep was fair, we identified a
sessile polyp at 20 cm at the rectosigmoid junction, as well as an additional 1 at roughly 80 cm in the transverse colon near the hepatic flexure. There was also a fairly large polyp in the cecum just adjacent to the appendiceal orifice which was
identified. Given its proximity to the appendiceal orifice I elected to do a polypectomy with a cold snare and the specimen was retrieved and intact with a Cobian net device. I then navigated the scope back to the cecum and then scrubbed back in.
Because of the proximity of the terminal ileum and the presence of diverticula (which were noted throughout the colon) I elected not to staple across the fistula and hand sew it closed instead. There was some adjacent fat to the appendiceal orifice
which was removed. The tissues around the appendiceal orifice were then imbricated using a running 2-0 PDS suture in 2 layers. The remnant appendix and surrounding tissues were removed and a 19 English round Fabrice drain was introduced through the
left lower quadrant port and passed across the pelvis and up the right colic gutter. This was secured to the skin with a 2-0 nylon suture. Adjacent fat from nearby omentum was placed over our repair. I then scrubbed out again to manipulate the
scope and a leak test was performed which was negative. The colon was then suctioned out, as the scope was withdrawn. The 5 mm ports were removed and the pneumoperitoneum evacuated. All incisions were closed with a 4-0 Monocryl suture followed by
Dermabond. 1 g of TXA was given intraoperatively due to coagulopathy which improved post administration.
POST OP PLAN:
Imaging: None
Labs: Routine AM
Diet: Clears
Analgesia: Tylenol 650mg q6 Joanne, tramadol 25 mg every 6 as needed, morphine 2 mg q2h PRN
Neuro/vascular checks: Per unit protocol
AC/AP: Hold Therapeutic AC, Ok for DVT PPx. Will plan to resume Eliquis on 09/07/2025.
Activity: Ad Sue
Wound/Incisions/Drains: Routine, AMALIA to bulb suction
Abx: Unasyn x 48 hours.
Dispo: RNF
[2025-09-04] MEDS: UNASYN IV ×2 (18:09→23:24)
--- NOTE | 2025-09-04 19:05 | PTCARENOTE ---
Pt arrived to south from pacu via bed at 1905. Pt aaox3, vss. cafeteria monitor placed per order, pt in a/ fib. Admission assessment complete. Pt with no complaints of pain and/or nausea. Pt galindo voiding clear yellow urine d/t be removed osmar-op
POD#1 @ 0600. LLQ nirmala drain with serosang drainage. Pt oriented to room, call fiore within reach, bed locked and in lowest position. Reviewed plan of care with pt and family at bedside. Answered all questions. Care ongoing.
[2025-09-04] MEDS: HEPARIN 5000 UNITS SC (20:45)
[2025-09-04] MEDS: LOPRESSOR 25 MG PO (21:45)
[2025-09-05] MEDS: REFRESH EYE DROPS (PF) 1 DROPS OPHTH ×2 (00:06→19:45)
--- NOTE | 2025-09-05 02:31 | DOWNTIME ---
There was a [employer] Client [employer]plain[employer] Downtime on 09/05/2025 from 0100 to 09/05/2025 at 0215. Downtime documentation of patient's care, including medication administrations, has been reconciled in the electronic record per guidelines. Refer to the
patient's paper chart under the miscellaneous tab to see printed paper medication records and downtime forms.
[2025-09-05 03:15] VITALS: BP 139/93
[2025-09-05] MEDS: UNASYN IV ×3 (05:27→18:01)
[2025-09-05 07:15] VITALS: BP 126/71
[2025-09-05 07:21] LABS: Hematocrit 42.0 % (39.0-52.0); Hemoglobin 13.9 g/dL (13.0-18.0); Mean Corp Hgb Conc. 33.1 g/dL (33.0-37.0); Mean Corpuscular Volume 89.2 fL (80.0-94.0); Platelet Count 295 10^3/uL (130-400); Red Cell Dist. Width 13.8 % (11.5-14.5)
[2025-09-05 07:52] LABS: Blood Urea Nitrogen 15 mg/dl (9-20); Calcium 9.2 mg/dl (8.4-10.2); Carbon Dioxide 21 mmol/L (22-30); Chloride 105 mmol/L (98-107); Estimated Creatinine Clearance 86 ml/min; Glucose 131 mg/dl (70-99); Potassium 5.0 mmol/L (3.5-5.1); Sodium 132 mmol/L (135-145); eGFR > 60.00
[2025-09-05] MEDS: LOPRESSOR 25 MG PO ×2 (08:30→19:46)
[2025-09-05] MEDS: HEPARIN 5000 UNITS SC ×2 (08:30→19:45)
--- NOTE | 2025-09-05 10:56 | W.PN.GS2 ---
Addendum entered and electronically signed by Aquilino Lebron MD 09/05/25 12:35:
Pt lives alone, feels mildly deconditioned and concerned about DC home today, prefers to convalesce an additional day and tentatively for DC home tomorrow
Original Note:
Today's Communication / Plan
-
LRD
Possible DC
Assessment / Plan
-
80M POD1 s/p Laparoscopic interval appendectomy, Laparoscopic takedown of an enterocutaneous fistula, Colonoscopy with polypectomy
Doing well following expected course post-op
AFVSS, denies pain, derick CLD
Plan:
Adv to LRD
PRN pain meds
DVT ppx
Tentatively to restart eliquis 09/07
Hold home BP meds given BPs WNL
Will discuss dispo with operating surgeon
Subjective Data
-
Date of Service: September 05, 2025
AFVSS, ambulating, derick CLD, denies pain, denies n/v
Objective Data
-
Intake and Output
09/04/25 09/05/25 09/06/25
06:59 06:59 06:59
Intake Total 360 / 360
Output Total 1185 / 1185
Balance -825 / -825
Intake:
Oral fluids 240 / 240
IV piggybacks 120 / 120
Output:
Drain Output (Total) 135 / 135
Left Abdomen Sukumar-Juarez 135 / 135
Urine, Galindo 1050 / 1050
Vital Signs
Temp Pulse Resp BP Pulse Ox
97.5 F 83 18 126/71 98
09/05/25 07:15 09/05/25 08:30 09/05/25 07:15 09/05/25 08:30 09/05/25 07:15
Lab Results
09/05/25 06:53
09/05/25 06:53
Calcium 9.2 mg/dl (8.4-10.2) 09/05/25 06:53
Physical Exam
-
Gen: NAD
Abd: soft, approp ttp, incisions cdi, drain ss
Patient has a galindo catheter: No
Patient has a central line: No
[2025-09-05 11:29] VITALS: BP 120/73
--- NOTE | 2025-09-05 12:52 | CM ---
business system manager reviewed patient's chart and met with patient and patient lives alone in a multilevel home has 1 st floor set up patient is independent with adl's and ambulation, patient drives, home when stable, no needs.
PCP: Dr. Elver Maxwell
Pharmacy: [facility] on [facility].
Plan; Home when stable.
[2025-09-05 15:47] VITALS: BP 102/68
[2025-09-05 19:43] VITALS: BP 128/67
[2025-09-05] MEDS: PROTONIX 40 MG PO (21:45)
[2025-09-05 23:02] VITALS: BP 123/82
[2025-09-06] MEDS: UNASYN IV ×3 (00:04→11:37)
[2025-09-06 03:15] VITALS: BP 118/81
[2025-09-06 07:00] VITALS: BP 147/85
[2025-09-06] MEDS: HEPARIN 5000 UNITS SC (09:02)
[2025-09-06] MEDS: PROTONIX 40 MG PO (09:02)
[2025-09-06] MEDS: LOPRESSOR 25 MG PO (09:02)
--- NOTE | 2025-09-06 09:48 | W.PN.GS2 ---
Today's Communication / Plan
-
dispo planning
Assessment / Plan
-
80M POD2 s/p Laparoscopic interval appendectomy, Laparoscopic takedown of an enterocutaneous fistula, Colonoscopy with polypectomy
Doing well following expected course post-op
AFVSS, denies pain, derick LRD
Plan:
Continue solid diet
AMALIA removed at bedside
PRN pain meds
DVT ppx
Plan to restart Eliquis 09/07
Resume home meds
Discharge to home, reviewed d/c instructions with the patient and his daughter.
Subjective Data
-
Date of Service: September 06, 2025
Pt seen and examined at bedside with Dr. Mcmillan. Denies n/v. Tolerating diet. Minimal discomfort. Passing a good deal of flatus, had a loose bm.
Objective Data
-
Intake and Output
09/05/25 09/06/25 09/07/25
06:59 06:59 06:59
Intake Total 360 / 360 1060 / 1060
Output Total 1185 / 1185 450 / 450
Balance -825 / -825 610 / 610
Intake:
Oral fluids 240 / 240 940 / 940
IV piggybacks 120 / 120 120 / 120
Output:
Drain Output (Total) 135 / 135 50 / 50
Left Abdomen Sukumar-Juarez 135 / 135 50 / 50
Urine, Galindo 1050 / 1050
Urine, Voided 400 / 400
Other:
Number of approximated MODERATE 2
amounts of urine
Vital Signs
Temp Pulse Resp BP Pulse Ox
98.4 F 90 18 147/85 98
09/06/25 07:00 09/06/25 07:00 09/06/25 07:00 09/06/25 07:00 09/06/25 07:00
Lab Results
09/05/25 06:53
09/05/25 06:53
Calcium 9.2 mg/dl (8.4-10.2) 09/05/25 06:53
Physical Exam
-
Gen: NAD
Abd: soft, approp ttp, incisions cdi, drain ss
Patient has a galindo catheter: No
Patient has a central line: No
--- NOTE | 2025-09-06 09:49 | CM ---
Patient is for possible discharge to home today.
Plan; Home when stable, no needs.
--- NOTE | 2025-09-06 10:03 | W.DS.TRANS ---
Addendum entered and electronically signed by RILEY Peters 09/07/25 15:42:
dictated #[id number]
Original Note:
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
-
Discharge Instructions:
Sleep Apnea Risk Intermediate
Discharge Diagnosis/Procedures Perforated appendicitis with enterocutaneous
fistula s/p laparoscopic appendectomy, takedown
of fistula and colonoscopy with polypectomy
Diet As tolerated
Additional Diets Small meals at first as bloating is common
Activity No strenuous activity
Additional Activity do not lift over 15lbs for the next 2-3 weeks
Bathing Restrictions OK to Shower
Wound Care Allow the glue to flake off your incisions on
its own over the next 2-3 weeks. Avoid soaking
in tubs or pools for the next 2 weeks. Do not
apply creams or ointments to your incisions.
Cover the site where your drain was located with
a dry gauze dressing. Ok to remove for showers.
Change daily and as needed if soiled. Once a
scab forms over the site and drainage no longer
present, you can leave open to air without a
dressing covering the site.
Instructions:
Stand-Alone Forms:
Changes to Home Medications: No
Discharge Medications:
DC Medications w/original date entered in [employer]
cetirizine 10 mg tablet 10 mg PO HS 09/04/12
esomeprazole magnesium 20 mg capsule,delayed release (Nexium 24HR) 20 mg PO NOON GERD 07/27/19
irbesartan 150 mg tablet 150 mg PO HS Blood Pressure 07/27/19
apixaban 5 mg tablet (Eliquis) 5 mg PO BID Blood Clot Prevention/Tx 10/20/24
Held on 09/06/25. Instructions: Resume on 09/07/25. resume tomorrow morning
ezetimibe 10 mg tablet (Zetia) 10 mg PO HS High Cholesterol 10/20/24
fluticasone propionate 50 mcg/actuation nasal spray,suspension (Flonase Allergy Relief) 2 spray intranasal BID Congestion 10/20/24
metoprolol succinate 25 mg tablet,extended release 24 hr 25 mg PO BID Blood Pressure 10/20/24
alpha lipoic acid 600 mg capsule 600 mg PO BID 08/28/25
sodium sul 1.479 gram-potas ch 0.188 gram-magnes sul 0.225 gram tablet (Sutab) 0 tab PO PER PKG DIR 08/28/25
tamsulosin 0.4 mg capsule (Flomax) 0.4 mg PO HS 08/28/25
acetaminophen 325 mg tablet 650 mg (2 x 325 mg) PO Q4HPRN PRN mild pain #1 tab 09/06/25
oxycodone 5 mg tablet 5 mg PO Q4HPRN PRN breakthrough/severe pain #5 tabs 09/06/25
Home Medication Changes
Pending Results: No
[2025-09-06 11:00] VITALS: BP 116/71
[2025-09-06] MEDS: FLUZONE HIGH-DOSE 2025-26 0.5 ML IM (11:36)
--- NOTE | 2025-09-09 10:28 | OR.RPT ---
Operative Report
Operative Report
Patient Name: Fox Allen III
: 1945
Date of Operation: 09/04/2025
Preoperative Diagnosis: Perforated appendicitis, enteric cutaneous fistula
Postoperative Diagnosis: Same
Procedure(s):
1. Laparoscopic interval appendectomy
2. Laparoscopic takedown of an enterocutaneous fistula
3. Colonoscopy with polypectomy
Surgeon(s):
Dr. Mueller
Stockroom Attendant(s):
PEE Gomez
Anesthesia: General
Estimated Blood Loss: 7 cc
Urine Output: None
Drains/Lines/Implants: None
Specimens:
1. Appendix
2. Cecal polyp
HPI/Surgical Indications:
This is an 80-year-old male with a history of perforated appendicitis that was managed with and IR intra-abdominal drain who presented to my office for management. Despite allowing for several months for this collection to collapse down he did
develop a enterocutaneous fistula so after a thorough discussion of risks benefits and alternatives, the patient agreed to proceed with surgery. The patient does have a history of a distal pancreatectomy and splenectomy which was complicated by an
incisional hernia which was fixed with mesh. On CT imaging he was noted to have a very large seroma overlying this mesh which was a strong consideration and port placement for this procedure.
Operative Findings: Left subcostal Veress entry which required a single pass followed by a right upper quadrant Optiview entry, ?potentially through mesh. 2 additional 5 mm ports were placed in the suprapubic and left lower quadrant areas all to
avoid his large midline postoperative seroma/mesh from his previous hernia repair. We began by triangulating to the right lower quadrant. The fold of Treves was identified and the bowel was run retrograde. There was a adhesion overlying the small
bowel which was lysed and removed. There was some dense midline adhesions from the omentum to the anterior abdominal wall which were left in place. The colon was plastered to the right lower quadrant abdominal wall this was carefully taken down
with sharp dissection revealing the drain which was removed as well as the appendiceal stump and fistula to the colon. There was not a significant abscess cavity. The remnant appendix was also identified and was carefully dissected off the
surrounding tissues. The mesentery was taken with the LigaSure device. The small bowel was also fairly densely adherent in this area so I elected to do a colonoscopy to better delineate the anatomy. His colon prep was fair, we identified a
sessile polyp at 20 cm at the rectosigmoid junction, as well as an additional 1 at roughly 80 cm in the transverse colon near the hepatic flexure. There was also a fairly large polyp in the cecum just adjacent to the appendiceal orifice which was
identified. Given its proximity to the appendiceal orifice I elected to do a polypectomy with a cold snare and the specimen was retrieved and intact with a Cobian net device. I then navigated the scope back to the cecum and then scrubbed back in.
Because of the proximity of the terminal ileum and the presence of diverticula (which were noted throughout the colon) I elected not to staple across the fistula and hand sew it closed instead. There was some adjacent fat to the appendiceal orifice
which was removed. The tissues around the appendiceal orifice were then imbricated using a running 2-0 PDS suture in 2 layers. The remnant appendix and surrounding tissues were removed and a 19 [place] round Fabrice drain was introduced through the
left lower quadrant port and passed across the pelvis and up the right colic gutter. This was secured to the skin with a 2-0 nylon suture. Adjacent fat from nearby omentum was placed over our repair. I then scrubbed out again to manipulate the
scope and a leak test was performed which was negative. The colon was then suctioned out, as the scope was withdrawn. The 5 mm ports were removed and the pneumoperitoneum evacuated. All incisions were closed with a 4-0 Monocryl suture followed by
Dermabond. 1 g of TXA was given intraoperatively due to coagulopathy which improved post administration.
Procedure Description:
The patient was placed in the dorsal lithotomy position, with the left arm tucked, and general anesthesia was induced. The abdomen was prepared and draped in a sterile fashion so as to expose the entire abdomen. A surgical time out was taken.
Abdominal access was obtained with a left subcostal Veress entry which required a single pass followed by a right upper quadrant Optiview entry. Despite being several centimeters away from his incision, given the difficulty going through the
abdominal wall it did feel like we potentially went through his mesh however no seroma was encountered. 2 additional 5 mm ports were then placed under vision in the suprapubic and left lower quadrants well away from his mesh and seroma. There was
some adhesions to the midline which were left in place as we were able to work around them and visualize the right lower quadrant. There was some adhesions overlying the small bowel which was lysed and removed. The cecum was identified and noted
to be plastered to the right lower quadrant abdominal wall, this was taken down with both sharp and blunt dissection revealing the drain which was removed as well as the appendiceal stump/fistula to the colon. There was not a significant abscess
cavity. The remnant appendix was also identified and was mildly adherent to the nearby small bowel. This was carefully dissected off of the small bowel and the mesentery was divided using a laparoscopic bipolar energy device. The terminal ileum
was also somewhat adherent in this area. At this point I elected to do a colonoscopy. His colon prep was fair, I was able to navigate the scope all the way to the cecum. He had a sessile polyp at roughly 20 cm near the rectosigmoid junction as
well as a proximal transverse colon polyp roughly 80 cm near the hepatic flexure which appeared to be pedunculated. There was a 1 cm polyp in the cecum just adjacent to the appendiceal orifice. Given its proximity, I elected to do a polypectomy
with a cold snare and the specimen was retrieved intact with a Cobian net device. There was also a diverticulum on the cecal wall about 3 cm away from the appendiceal orifice. Diverticula were noted throughout the colon. I then navigated the scope
back to the cecum and scrubbed back in. As the appendiceal stump/fistula was small and the surrounding tissues appeared fairly healthy I elected to hand so this closed in 2 layers using a running 2-0 PDS STRATAFIX suture. There was some adjacent
fat which had to be removed as well. This along with the remnant appendix was removed using a specimen bag. With the help of my ssn/ssbn assistant navigator, we performed a leak test by insufflating the cecum with air and flooding the right lower quadrant with
saline. No air bubbles were noted indicating that our repair was indeed airtight. The scope was withdrawn. Nevertheless, a 19 [place] round Fabrice drain was then introduced through the left lower quadrant port and passed across the pelvis and up
the right colic gutter. This was secured to the skin with a 2-0 nylon suture. Adjacent omentum was draped over our repair. The ports were removed and pneumoperitoneum was evacuated. All incisions were then closed with 4-0 Monocryl followed by
Dermabond. During the case 1 g of TXA was given intraoperatively due to coagulopathy which improved post administration. Counts were correct x 2. The patient was awoken from anesthesia in good condition and transported to the recovery area.
I was the attending physician and performed the procedure with assistance from the LUMBER STACKER DRIVER above. I was present for all portions of the case excluding skin closure.
Chong Mueller MD
== END 2025-09-06 13:05 | disposition home or self-care (01) | DRG 330 ==
LOC: 2 SOUTH 12:46
PROVIDERS: ADMITTING PHYSICIAN Surgery; FAMILY PHYSICIAN Family Medicine
PROC: 0DBH8ZZ Excision of Cecum, Via Natural or Artificial Opening Endoscopic (ICD-10-PCS; 2025-09-04)
PROC: 0DTJ4ZZ Resection of Appendix, Percutaneous Endoscopic Approach (ICD-10-PCS; 2025-09-04)
PROC: 0DQH4ZZ Repair Cecum, Percutaneous Endoscopic Approach (ICD-10-PCS; 2025-09-04)
PROC: 3E02340 Introduction of Influenza Vaccine into Muscle, Percutaneous Approach (ICD-10-PCS; 2025-09-06)
DX: K35.32 Acute appendicitis with perforation, localized peritonitis, and gangrene, without abscess (principal); D68.9 Coagulation defect, unspecified; K63.2 Fistula of intestine; K66.0 Peritoneal adhesions (postprocedural) (postinfection); D12.3 Benign neoplasm of transverse colon; D12.7 Benign neoplasm of rectosigmoid junction; I10 Essential (primary) hypertension; D12.0 Benign neoplasm of cecum; I48.91 Unspecified atrial fibrillation; Z60.2 Problems related to living alone; Z79.01 Long term (current) use of anticoagulants; Z88.1 Allergy status to other antibiotic agents; Z23 Encounter for immunization; Z90.81 Acquired absence of spleen
CPT/HCPCS: 36415; 80048; 85027; 86850; 86900; 86901; 88304; 88305; 90662; G0008